=== PATIENT | female | born 1965 | race African-American/Black ===

== ENCOUNTER → 2016-04-14 16:35 | Outpatient (CLI) | payer MEDICARE ==
[2016-03-20 15:49] VITALS: BMI 20.8
[~2016-04-14 16:35] MED LIST: Ancef 2 GM/Dextrose IV; CLEOCIN HCL300 MG PO; FOLATE0.4 MG PO; IMITREX100 MG PO; METOPROLOL TART50 MG PO; PERCOCET 10/3251 TA1 PO; PREDNISONE10 MG PO; PREDNISONE5 MG PO; PROAIR HFA8.5 GM INH; SOMA350 MG PO; TEMAZEPAM30 MG PO; VIBRAMYCIN 100100 MG PO; XANAX0.5 MG PO; XANAX1 MG PO
[2016-04-14 17:15] LABS: BASOPHILS 0.3 % (0.0-2.0); EOSINOPHILS 1.7 % (0-7); HEMATOCRIT 30.2 % (36.0-48.0); HEMOGLOBIN 9.8 g/dL (12-16); IMMATURE GRANULOCYTES 0.1 % (0-5); LYMPHOCYTES 20.6 % (15-50); MCH 28.1 pg (26.0-34.0); MCHC 32.5 g/dL (31.0-37.0); MCV 86.5 fL (80.0-100.0); MONOCYTES 6.2 % (2-11); NEUTROPHILS 71.1 % (40-80); PLATELET COUNT 227 10x3/uL (130-400); RBC 3.49 10x6/uL (4.00-5.40); RDW 15.9 % (11.5-14.5); WBC 7.2 10x3/uL (4.8-10.8)
[2016-04-14 17:25] LABS: C-REACTIVE PROTEIN 2.7 mg/dL (0.0-0.9); CREATININE - SERUM 0.8 mg/dL (0.6-1.3)
[2016-04-14 18:19] LABS: ERYTHROCYTE SEDIMENTATION RATE 38 mm/hr (0-30)
== END | disposition home or self-care (01) ==
LOC: D.LABREF 16:35
PROVIDERS: Student in an Organized Health Care Education/Training Program
DX: T84.59XA Infection and inflammatory reaction due to other internal joint prosthesis, initial encounter (principal); B95.61 Methicillin susceptible Staphylococcus aureus infection as the cause of diseases classified elsewhere; M06.9 Rheumatoid arthritis, unspecified

== ENCOUNTER → 2016-04-21 16:38 | Outpatient (CLI) | payer MEDICARE ==
[2016-03-20 15:49] VITALS: BMI 20.8
[2016-04-21 18:35] LABS: C-REACTIVE PROTEIN 0.2 mg/dL (0.0-0.9); CREATININE - SERUM 0.9 mg/dL (0.6-1.3)
== END | disposition home or self-care (01) ==
LOC: D.LABREF 16:38
PROVIDERS: Student in an Organized Health Care Education/Training Program
DX: T84.50XA Infection and inflammatory reaction due to unspecified internal joint prosthesis, initial encounter (principal)

== ENCOUNTER → 2016-04-22 17:53 | Outpatient (CLI) | payer MEDICARE ==
[2016-03-20 15:49] VITALS: BMI 20.8
[2016-04-22 20:00] LABS: BASOPHILS 0.1 % (0.0-2.0); EOSINOPHILS 1.7 % (0-7); HEMATOCRIT 33.5 % (36.0-48.0); IMMATURE GRANULOCYTES 0.1 % (0-5); LYMPHOCYTES 27.1 % (15-50); MCH 28.4 pg (26.0-34.0); MCHC 32.8 g/dL (31.0-37.0); MCV 86.3 fL (80.0-100.0); MONOCYTES 4.5 % (2-11); NEUTROPHILS 66.5 % (40-80); RBC 3.88 10x6/uL (4.00-5.40); RDW 15.7 % (11.5-14.5); WBC 7.3 10x3/uL (4.8-10.8)
[2016-04-22 20:03] LABS: PLATELET COUNT 284 10x3/uL (130-400)
[2016-04-22 21:12] LABS: ERYTHROCYTE SEDIMENTATION RATE 25 mm/hr (0-30)
== END | disposition home or self-care (01) ==
LOC: D.LABREF 17:53
PROVIDERS: Student in an Organized Health Care Education/Training Program
DX: T84.59XA Infection and inflammatory reaction due to other internal joint prosthesis, initial encounter (principal); Z45.2 Encounter for adjustment and management of vascular access device; Z79.2 Long term (current) use of antibiotics; B95.61 Methicillin susceptible Staphylococcus aureus infection as the cause of diseases classified elsewhere

== ENCOUNTER 2016-04-28 08:00 | Outpatient (CLI) | payer MEDICARE ==
[2016-03-20 15:49] VITALS: BMI 20.8
[2016-04-25 09:59] LABS: BASOPHILS 0.2 % (0.0-2.0); EOSINOPHILS 2.3 % (0-7); HEMATOCRIT 32.8 % (36.0-48.0); HEMOGLOBIN 10.7 g/dL (12-16); IMMATURE GRANULOCYTES 0.2 % (0-5); LYMPHOCYTES 18.6 % (15-50); MCH 28.2 pg (26.0-34.0); MCHC 32.6 g/dL (31.0-37.0); MCV 86.5 fL (80.0-100.0); MEAN PLATELET VOLUME 11.1 fL (7.4-10.4); MONOCYTES 4.5 % (2-11); NEUTROPHILS 74.2 % (40-80); PLATELET COUNT 261 10x3/uL (130-400); RBC 3.79 10x6/uL (4.00-5.40); RDW 15.5 % (11.5-14.5); WBC 8.6 10x3/uL (4.8-10.8)
[2016-04-25 10:07] LABS: CALC OSMOLALITY 281 mosm/kg (275-300); CALCIUM 8.9 mg/dL (8.5-10.1); CARBON DIOXIDE 28.2 mmol/L (21.0-32.0); CHLORIDE - SERUM 104 mmol/L (98-107); CREATININE - SERUM 0.8 mg/dL (0.6-1.3); GLUCOSE 90 mg/dL (74-106); POTASSIUM - SERUM 3.7 mmol/L (3.5-5.1); SODIUM 141 mmol/L (136-145); UREA NITROGEN 14 mg/dL (7-18); eGFR NON AFRICAN AMERICAN 80 mL/min (90-120)
[2016-04-25 10:08] LABS: APTT 25.7 SECONDS (22.8-39.4); INR 0.98 (0.85-1.17); PROTIME 12.9 SECONDS (11.6-15.0)
[2016-04-25 10:09] LABS: APPEARANCE CLEAR (CLEAR); BILIRUBIN NEGATIVE (NEGATIVE); COLOR YELLOW (YELLOW); GLUCOSE NEGATIVE (NEGATIVE); KETONE NEGATIVE (NEGATIVE); LEUKOCYTE ESTERASE NEGATIVE (NEGATIVE); NITRITE NEGATIVE (NEGATIVE); PROTEIN NEGATIVE (NEGATIVE); UROBILINOGEN NORMAL (NORMAL)
[~2016-04-28 08:00] MED LIST changes: -FOLATE0.4 MG PO; -VIBRAMYCIN 100100 MG PO
[2016-04-28 19:50] LABS: BASOPHILS 0.2 % (0.0-2.0); EOSINOPHILS 1.6 % (0-7); HEMATOCRIT 30.6 % (36.0-48.0); IMMATURE GRANULOCYTES 0.4 % (0-5); LYMPHOCYTES 27.4 % (15-50); MCH 28.1 pg (26.0-34.0); MCHC 32.7 g/dL (31.0-37.0); MEAN PLATELET VOLUME 13.1 fL (7.4-10.4); NEUTROPHILS 65.4 % (40-80); PLATELET COUNT 258 10x3/uL (130-400); RBC 3.56 10x6/uL (4.00-5.40); RDW 15.8 % (11.5-14.5); WBC 8.1 10x3/uL (4.8-10.8)
[2016-04-28 19:51] LABS: C-REACTIVE PROTEIN 0.2 mg/dL (0.0-0.9); CREATININE - SERUM 0.8 mg/dL (0.6-1.3)
[2016-04-28 21:46] LABS: ERYTHROCYTE SEDIMENTATION RATE 30 mm/hr (0-30)
== END 2016-04-28 23:59 | disposition home or self-care (01) ==
LOC: D.OPS 08:00 → D.SDCHOLD 11:00 → EDSTATUS 11:25 → D.SDCHOLD 11:25 → D.OPS 23:59
PROVIDERS: Orthopaedic Surgery
DX: T85.9XXA Unspecified complication of internal prosthetic device, implant and graft, initial encounter (principal); Z01.810 Encounter for preprocedural cardiovascular examination; Z01.811 Encounter for preprocedural respiratory examination; Z01.812 Encounter for preprocedural laboratory examination; Z53.9 Procedure and treatment not carried out, unspecified reason

== ENCOUNTER → 2016-05-05 15:49 | Outpatient (CLI) | payer MEDICARE ==
[2016-03-20 15:49] VITALS: BMI 20.8
[~2016-05-05 15:49] MED LIST changes: +FOLATE0.4 MG PO; +VIBRAMYCIN 100100 MG PO
[2016-05-05 16:26] LABS: BASOPHILS 0.3 % (0.0-2.0); EOSINOPHILS 1.6 % (0-7); HEMATOCRIT 32.5 % (36.0-48.0); HEMOGLOBIN 10.8 g/dL (12-16); IMMATURE GRANULOCYTES 0.3 % (0-5); LYMPHOCYTES 29.1 % (15-50); MCH 28.5 pg (26.0-34.0); MCHC 33.2 g/dL (31.0-37.0); MCV 85.8 fL (80.0-100.0); MONOCYTES 4.2 % (2-11); NEUTROPHILS 64.5 % (40-80); PLATELET COUNT 256 10x3/uL (130-400); RBC 3.79 10x6/uL (4.00-5.40); RDW 15.6 % (11.5-14.5); WBC 7.9 10x3/uL (4.8-10.8)
[2016-05-05 16:49] LABS: C-REACTIVE PROTEIN 0.7 mg/dL (0.0-0.9); CREATININE - SERUM 0.8 mg/dL (0.6-1.3)
[2016-05-05 18:17] LABS: ERYTHROCYTE SEDIMENTATION RATE 26 mm/hr (0-30)
== END | disposition home or self-care (01) ==
LOC: D.LABREF 15:49
PROVIDERS: Student in an Organized Health Care Education/Training Program
DX: T84.59XA Infection and inflammatory reaction due to other internal joint prosthesis, initial encounter (principal); B95.61 Methicillin susceptible Staphylococcus aureus infection as the cause of diseases classified elsewhere

== ENCOUNTER 2016-05-19 05:32 | Inpatient (IN) | payer MEDICARE ==
[2016-05-16 15:41] LABS: BASOPHILS 0.2 % (0.0-2.0); EOSINOPHILS 1.2 % (0-7); HEMATOCRIT 34.6 % (36.0-48.0); HEMOGLOBIN 11.3 g/dL (12-16); IMMATURE GRANULOCYTES 0.3 % (0-5); LYMPHOCYTES 21.2 % (15-50); MCH 28.6 pg (26.0-34.0); MCHC 32.7 g/dL (31.0-37.0); MCV 87.6 fL (80.0-100.0); MEAN PLATELET VOLUME 12.5 fL (7.4-10.4); MONOCYTES 5.8 % (2-11); NEUTROPHILS 71.3 % (40-80); PLATELET COUNT 234 10x3/uL (130-400); RBC 3.95 10x6/uL (4.00-5.40); RDW 15.1 % (11.5-14.5); WBC 9.7 10x3/uL (4.8-10.8)
[2016-05-16 15:49] LABS: ANION GAP 13.5 mmol/L (8-16); CALCIUM 9.3 mg/dL (8.5-10.1); CARBON DIOXIDE 27.7 mmol/L (21.0-32.0); CREATININE - SERUM 0.9 mg/dL (0.6-1.3); POTASSIUM - SERUM 4.2 mmol/L (3.5-5.1)
[2016-05-16 16:18] LABS: APPEARANCE CLEAR (CLEAR); BILIRUBIN NEGATIVE (NEGATIVE); COLOR YELLOW (YELLOW); GLUCOSE NEGATIVE (NEGATIVE); KETONE NEGATIVE (NEGATIVE); LEUKOCYTE ESTERASE NEGATIVE (NEGATIVE); NITRITE NEGATIVE (NEGATIVE); PROTEIN NEGATIVE (NEGATIVE); SPECIFIC GRAVITY 1.015 (1.005-1.020); UROBILINOGEN NORMAL (NORMAL)
[2016-05-16 16:27] LABS: APTT 26.1 SECONDS (22.8-39.4); INR 0.97 (0.85-1.17); PROTIME 12.7 SECONDS (11.6-15.0)
[~2016-05-19] VITALS: Ht 154.9 cm; Wt 49.1 kg
[2016-05-19] VITALS (9 sets, daily range): BP systolic 139–174; BP diastolic 75–90; Ht 154.9 cm; Wt 49.1 kg
[~2016-05-19 05:32] MED LIST changes: -FOLATE0.4 MG PO; -VIBRAMYCIN 100100 MG PO
[2016-05-19] MEDS ORDERED: PROAIR HFA8.5 GM INH (09:54)
--- NOTE | 2016-05-19 09:55 | NUR ---
0955 PT STATES NO CHANGES IN HEALTH HISTORY ASSESSMENT SINCE INTERVIEWED ON 05/16/16. Rand CRUZ R.N.
[2016-05-19] MEDS ORDERED: FOLATE0.4 MG PO (09:57)
--- NOTE | 2016-05-19 14:15 | NUR ---
RIGHT ELBOW SCRUBBED WITH CHOLRAHEXADINE AND ALCOHOL BEFORE CHLORAPREP
--- NOTE | 2016-05-19 15:59 | NUR ---
PT STATING HOW HUNGRY SHE IS. NO NONVERBAL SIGNS OF PAIN OBSERVED. BP DECREASING AND HR GOING BACK TO PREOP AMOUNTS.
--- NOTE | 2016-05-19 17:05 | NUR ---
BLOOD ON PATIENT'S PILLOW CASE FROM RIGHT INNER ELBOW AREA OF DRESSING. REENFORCED DRESSING WITH 1 PACK OF 4X4 GAUZE AND WRAPPED WITH JAQUAN BANDAGE. PATIENT HAS A SMALL SLING THAT CAME WITH HER FROM THE RECOVERY ROOM, IT IS TOO SMALL. ASSISTED HOLDING PATIENT'S ARM SHE AMBULATED FROM THE BED TO THE BATHROOM. PATIENT VOIDED. ASSISTED PATIENT BACK TO BED.
--- NOTE | 2016-05-19 19:00 | NUR ---
PATIENT SUPINE IN BED WATCHING TV. AAOX4. RR EVEN AND UNLABORED. 0 S/S OF DISTRESS. STATES PAIN IS A 10/10. IV TO LEFT HAND PATENT WITH NO REDNESS OR SWELLING. DRESSING TO RIGHT ELBOW CDI. SLING ON. SCD'S IN ROOM BUT OFF. SRX2. BED LOW. CALL LIGHT WITHIN REACH.
--- NOTE | 2016-05-19 21:45 | NUR ---
NIGHTTIME MEDS GIVEN. BOLUS OF DILAUDID GIVEN FOR BREAKTHROUGH PAIN.
--- NOTE | 2016-05-19 23:40 | NUR ---
PATIENT STATES THAT SHE IS HAVING A PAIN IN HER ABDOMEN AND THAT SHE IS VERY NAUSEATED. ZOFRAN GIVEN PER ORDER.
[2016-05-20 01:00] VITALS: BP 150/76
[2016-05-20 05:00] VITALS: BP 152/88
[2016-05-20 05:58] LABS: BASOPHILS 0.1 % (0.0-2.0); EOSINOPHILS 0.4 % (0-7); HEMATOCRIT 29.6 % (36.0-48.0); HEMOGLOBIN 9.7 g/dL (12-16); IMMATURE GRANULOCYTES 0.2 % (0-5); LYMPHOCYTES 14.3 % (15-50); MCH 28.2 pg (26.0-34.0); MCHC 32.8 g/dL (31.0-37.0); MEAN PLATELET VOLUME 12.3 fL (7.4-10.4); MONOCYTES 6.5 % (2-11); NEUTROPHILS 78.5 % (40-80); PLATELET COUNT 230 10x3/uL (130-400); RBC 3.44 10x6/uL (4.00-5.40); RDW 14.9 % (11.5-14.5)
[2016-05-20 06:17] LABS: ALBUMIN 3.5 g/dL (3.4-5.0); ALKALINE PHOSPHATASE 96 U/L (46-116); ALT (SGPT) 18 U/L (10-68); CALC OSMOLALITY 283 mosm/kg (275-300); CALCIUM 8.9 mg/dL (8.5-10.1); CHLORIDE - SERUM 106 mmol/L (98-107); CREATININE - SERUM 0.8 mg/dL (0.6-1.3); GLUCOSE 111 mg/dL (74-106); POTASSIUM - SERUM 3.9 mmol/L (3.5-5.1); PROTEIN - SERUM 7.2 g/dL (6.4-8.2); SODIUM 141 mmol/L (136-145); UREA NITROGEN 17 mg/dL (7-18); eGFR NON AFRICAN AMERICAN 80 mL/min (90-120)
--- NOTE | 2016-05-20 07:34 | NUR ---
PATIENT VERBALIZED NAUSEA. PATIENT STATED "THE DILAUDID IS MAKING ME NAUSEOUS. EVERYTIME I PUSH THE BUTTON I GET NAUSEOUS." ADMINISTERED ZOFRAN IV. PATIENT VERBALIZING PAIN. PATIENT MOANING, CRYING. PATIENT STATED "I JUST WANT TO FEEL BETTER." ASKED PATIENT "WHAT HELPS YOUR PAIN WITHOUT MAKING YOU NAUSEOUS?" PATIENT STATED "PERCOCETS AND SOMAS."
[2016-05-20 08:18] VITALS: BP 177/97
--- NOTE | 2016-05-20 09:00 | NUR ---
PATIENT AMBULATED TO AND FROM THE BATHROOM WITH ASSIST FROM NURSING STUDENTS.
--- NOTE | 2016-05-20 09:33 | NUR ---
PATIENT RESTING QUIETLY WITH EYES CLOSED. LAYING ON LEFT SIDE. BOYFRIEND IN RECLINER AT BEDSIDE. NO SIGNS OF DISTRESS NOTED.
[2016-05-20 12:01] VITALS: BP 162/72
--- NOTE | 2016-05-20 14:50 | NUR ---
PATIENT VERBALIZED TENDERNESS TO IV IN LEFT HAND. TRIED TO FLUSH, PATIENT VERBALIZED BURNING. D/C IV WITH CATH INTACT. PATIENT IS A HARD STICK. WILL CALL TAMIR VENOUS ACCESS NURSE.
--- NOTE | 2016-05-20 15:19 | NUR ---
iv ACCESS-22 gauge IV catheter placed in left hand x 1 attempt. Brenda Joel RN
--- NOTE | 2016-05-20 17:25 | NUR ---
GRAHAM WATTSSPRAYER HAND STATED THE PATIENT IS REQUESTING MEDIDCATION FOR ANXIETY.
--- NOTE | 2016-05-20 17:39 | NUR ---
WENT IN PATIENT'S ROOM, SHE IS RESTING QUIETLY WITH EYES CLOSED. WILL NOT GIVE MEDICATION FOR ANXIETY AT THIS TIME.
--- NOTE | 2016-05-20 18:00 | NUR ---
IV KEEPS BEEPING OCCLUDED. IV IS POSITIONAL. IF PATIENT HOLDS HER HAND AT A CERTAIN ANGLE IV FLUSHES READILY, WITHOUT RESISTANCE. EXPLAINED TO PATIENT. DISCUSSED WITH PATIENT ABOUT THE IV BEEPING CONSTANTLY. PATIENT IS UNABLE TO HOLD HAND AT THE ANGLE IT INFUSES AT. PATIENT AGREED TO TRY TO GET ANOTHER IV PUT IN. TRIED TO STICK PATIENT IN LEFT FOREARM X'S 1 ATTEMPT, UNSUCCESSFUL.
--- NOTE | 2016-05-20 18:30 | NUR ---
ANOTHER NURSE TRIED TO START IV AND WAS UNSUCCESSFUL. SPOKE WITH PATIENT. EXPLAINED THAT I CAN HOOK HER BACK UP TO THE IV AND POLE PEELING MACHINE OPERATOR BUT IT WILL CONTINUE TO BEEP AND SOMEONE WILL HAVE TO KEEP COMING IN TO RESTART IT. OR WE CAN DO THE ORAL PAIN MEDICATION AND ONLY USE THE IV FOR ANTIBIOTICS. PATIENT AGREED TO BEING SALINE LOCKED EXCEPT FOR ANTIBIOTICS AND TAKING ONLY ORAL PAIN MEDICATION. PATIENT STATED SHE UNDERSTANDS.
--- NOTE | 2016-05-20 18:46 | NUR ---
ADMINISTERED A PERCOCET. PATIENT STATED "I NEED YOU TO GIVE ME MY PERCOCET, NORCO AND SOMA." I EXPLAINED TO PATIENT "I CANNOT GIVE YOU ALL OF THOSE MEDS AT ONE TIME. YOUR SOMA IS SCHEDULED. AND THE NORCO AND PERCOCET WE CANNOT GIVE WITHIN 2 HOURS OF THE OTHER ONE." PATIENT VERBALIZED UNDERSTANDING AND AGREED.
[2016-05-20 21:00] VITALS: BP 127/71
[2016-05-21 01:00] VITALS: BP 117/68
--- NOTE | 2016-05-21 04:39 | NUR ---
EYES CLOSED RESPIRATIONS WITH EASE AND UNLABORED.
[2016-05-21 05:00] VITALS: BP 122/68
[2016-05-21 05:35] LABS: BASOPHILS 0.1 % (0.0-2.0); HEMATOCRIT 27.1 % (36.0-48.0); HEMOGLOBIN 8.9 g/dL (12-16); IMMATURE GRANULOCYTES 0.1 % (0-5); LYMPHOCYTES 29.3 % (15-50); MCH 28.2 pg (26.0-34.0); MCHC 32.8 g/dL (31.0-37.0); MCV 85.8 fL (80.0-100.0); MEAN PLATELET VOLUME 11.5 fL (7.4-10.4); MONOCYTES 11.1 % (2-11); NEUTROPHILS 55.4 % (40-80); PLATELET COUNT 218 10x3/uL (130-400); RBC 3.16 10x6/uL (4.00-5.40)
[2016-05-21 05:42] LABS: WBC 7.2 10x3/uL (4.8-10.8)
[2016-05-21 06:15] LABS: ALBUMIN 3.2 g/dL (3.4-5.0); ALKALINE PHOSPHATASE 76 U/L (46-116); ALT (SGPT) 16 U/L (10-68); BILIRUBIN - TOTAL 0.28 mg/dL (0.2-1.3); CALC OSMOLALITY 281 mosm/kg (275-300); CALCIUM 8.5 mg/dL (8.5-10.1); CARBON DIOXIDE 25.3 mmol/L (21.0-32.0); CHLORIDE - SERUM 107 mmol/L (98-107); CREATININE - SERUM 0.8 mg/dL (0.6-1.3); GLUCOSE 93 mg/dL (74-106); POTASSIUM - SERUM 3.6 mmol/L (3.5-5.1); SODIUM 142 mmol/L (136-145); eGFR NON AFRICAN AMERICAN 80 mL/min (90-120)
[2016-05-21 06:22] LABS: UREA NITROGEN 10 mg/dL (7-18)
--- NOTE | 2016-05-21 07:15 | NUR ---
PATIENT RECEIVED SITTING UP IN BED ALERT. NO SIGNS OF DISTRESS NOTED. SIDE RAILS UP X2. BED IN LOW POSITION. CALL LIGHT IN REACH.
[2016-05-21 08:03] VITALS: BP 101/63
[2016-05-21] MEDS ORDERED: SOMA350 MG PO (08:12)
[2016-05-21] MEDS ORDERED: XANAX0.5 MG PO (08:13)
[2016-05-21] MEDS ORDERED: METOPROLOL TART50 MG PO (08:13)
[2016-05-21] MEDS ORDERED: PREDNISONE5 MG PO (08:14)
[2016-05-21] MEDS ORDERED: PERCOCET 10/3251 TA1 PO (08:15)
[2016-05-21] MEDS ORDERED: VIBRAMYCIN 100100 MG PO (08:19)
[2016-05-21] MEDS ORDERED: XANAX1 MG PO (08:25)
--- NOTE | 2016-05-21 09:04 | NUR ---
PATIENT SITTING UP ON SIDE OF BED ALERT. NO SIGNS OF DISTRESS NOTED. SCHEDULED MEDICATION ADMINISTERED. BED IN LOW POSITION. CALL LIGHT AND SURVEILLANCE DUAL RATE OFFICER BUTTON IN REACH. WILL CONTINUE TO MONITOR.
--- NOTE | 2016-05-21 09:09 | NUR ---
Patient Name: RENE KNUTSON Admission Status: Elective Accout number: [id number] Admission Date: 05-19-2016 : 1965 Admission Diagnosis: Attending: LUX Current LOS: 2 Anticipated DC Date: 05-21-2016 Planned Disposition: Home or Self Care Primary Insurance: MEDICARE A & B Discharge Planning Comments: CM MET WITH PATIENT REGARDING D/C NEEDS AND PLANS. PATIENT STATED SHE IS DISCHARGING HOME TODAY AND SHE DENIED HOME HEALTH OR ANY OTHER NEEDS. PATIENT STATED HER BOYFRIEND (HUEY) IS DRIVING HER HOME. PATIENT STATED SHE HAS 2 STEPS W/GRAB BAR TO ENTER HOME AND NO STAIRS INSIDE. PATIENTS BOYFRIEND HELPS HER WITH DRESSING, BATHING, AND MEDICATION MANAGEMENT. PATIENTS PCP IS WITH [facility] BUT SHE DOES NOT KNOW THE NAME. PATIENT USES [facility] [address] [facility] [address] FOR HER PHARMACY. CM WILL CONTINUE TO FOLLOW PATIENT WITH HER D/C NEEDS AND PLANS. PCP [facility] [address] HUEY (BOYFRIEND) [phone] Cv Rn: Jaci Hansen Is the patient Alert and Oriented? Yes 0 * How many steps to enter\exit or inside your home? 3 W/RAILS 0 * PCP [facility] 0 * Pharmacy [facility] [address] 0 * Preadmission Environment Home with Family 0 * ADLs Partial Dependent 0 * Partial ADLs (Assistance needed) Bathing Dressing Medication Management 0 * Equipment None 0 * List name and contact numbers for known caregivers / representatives who currently or will assist patient after discharge: HUEY LEIGH (BOYFRIEND) [phone] 0 * Community resources currently utilized None 0 * Additional services required to return to the preadmission environment? Yes 0 * Can the patient safely return to the preadmission environment? Yes 0 * Has this patient been hospitalized within the prior 30 days at any hospital? No 0 Grand Total: 0
--- NOTE | 2016-05-21 12:00 | NUR ---
SITTING UP ON SIDE OF BED ALERT. ANITICIPATING D/C HOME. GUEST AT BEDSIDE. CALL LIGHT IN REACH. BED IN LOW POSITION.
--- NOTE | 2016-05-21 13:25 | NUR ---
IV D/C WITH CATH TIP INTACT. SITE COVERED WITH GAUZE AND BANDAID. WELL TOLERATED.
--- NOTE | 2016-05-21 13:30 | NUR ---
D/C TEACHING AND WRITTEN PRESCRIPTIONS GIVEN TO PATIENT. STATES UNDERSTANDING. DENIES NEEDS.
--- NOTE | 2016-05-21 13:40 | NUR ---
PATIENT D/C HOME WITH FAMILY. TRANSFERRED DOWNSTAIRS VIA WHEELCHAIR WITH VOLUNTEER
--- NOTE | 2016-05-24 10:48 | OP ---
PATIENT NAME: RENE KNUTSON MEDICAL RECORD: [id number] :[birth year] LOCATION:D.MS Tate2212 ADMISSION DATE:05/19/16 SURGEON: OWEN DAVENPORT MD DATE OF OPERATION: 05/19/2016 PREOPERATIVE DIAGNOSIS: Previously placed cement spacer of the right elbow for infection. POSTOPERATIVE DIAGNOSIS: Previously placed cement spacer of the right elbow for infection. PROCEDURE: Revision total elbow with removal of previously placed spacer. SURGEON: Owen Davenport MD. ANESTHESIA: General. INTRAOPERATIVE COMPLICATIONS: Essentially none. SUMMARY OF PATHOLOGIC FINDINGS: This patient has had substantial bone loss and substantial arthrofibrosis; however, after the spacer was taken out, arc of motion about 45 degrees was achieved. Canals were cleared proximally and distally for a small standard and a small short stem for the ulna. After the trials were taken through range of motion and thought to be appropriate, the prosthesis was articulated on the back table and then cemented into place. All excess cement was allowed to harden. The wound at this point was copiously irrigated. The triceps flap was reapproximated back to the olecranon using 2.6 Pitons from [employer]. Having completed this, the wound was closed with #1 Vicryl followed by 2-0 Vicryl and skin gaston. Sterile dressings were applied. Tourniquet was deflated and a splint was applied at approximately 65 degrees. The patient was awakened, LMA was removed. He was taken to recovery room in stable condition. All final needle and sponge counts were correct. TRANSINT:[id number] Voice Confirmation ID: [id number] DOCUMENT ID: [id number] OWEN DAVENPORT MD at 1048 CC: [id number] DICTATION DATE: 05/19/16 1706 RACE BOARD ATTENDANT: 05/19/163 DIS IN 05/21/16 [facility] [address] [id number]
== END 2016-05-21 13:44 | disposition home or self-care (01) | DRG 516 ==
LOC: D.MS 05:32 → D.SDCHOLD 05:32 → D.MS 12:42 → D.SDCHOLD 13:25 → D.MS 05-21 13:44
PROVIDERS: Emergency Medicine; ADMIT Orthopaedic Surgery
PROC: 0RP Upper Joints, Removal (ICD-10-PCS; 2016-05-19)
PROC: 0RW Upper Joints, Revision (ICD-10-PCS; principal; 2016-05-19 11:45)
DX: Z47.1 Aftercare following joint replacement surgery (principal); D62 Acute posthemorrhagic anemia; F17.203 Nicotine dependence unspecified, with withdrawal; M24.621 Ankylosis, right elbow; D63.8 Anemia in other chronic diseases classified elsewhere; M06.9 Rheumatoid arthritis, unspecified; I10 Essential (primary) hypertension; E87.6 Hypokalemia; E05.90 Thyrotoxicosis, unspecified without thyrotoxic crisis or storm

== ENCOUNTER → 2016-07-03 09:46 | Outpatient (CLI) | payer MEDICARE ==
[2016-05-19 17:33] VITALS: BMI 20.4
[2016-07-10 16:14] LABS: AEROBE ID Final report (())
== END | disposition home or self-care (01) ==
LOC: D.LABREF 09:46
PROVIDERS: Orthopaedic Surgery
DX: Z47.1 Aftercare following joint replacement surgery (principal); Z96.621 Presence of right artificial elbow joint

== ENCOUNTER → 2016-07-03 | Emergency (ER) | payer MEDICARE ==
[2016-05-19 17:33] VITALS: BMI 20.4
[~2016-07-03] MED LIST changes: +FOLATE0.4 MG PO; +VIBRAMYCIN 100100 MG PO
[2016-07-03 23:29] LABS: BASOPHILS 0.4 % (0.0-2.0); EOSINOPHILS 3.8 % (0-7); HEMATOCRIT 35.4 % (36.0-48.0); HEMOGLOBIN 11.8 g/dL (12-16); IMMATURE GRANULOCYTES 0.1 % (0-5); LYMPHOCYTES 35.6 % (15-50); MCH 28.4 pg (26.0-34.0); MCHC 33.3 g/dL (31.0-37.0); MCV 85.1 fL (80.0-100.0); MEAN PLATELET VOLUME 10.8 fL (7.4-10.4); MONOCYTES 8.2 % (2-11); NEUTROPHILS 51.9 % (40-80); PLATELET COUNT 278 10x3/uL (130-400); RBC 4.16 10x6/uL (4.00-5.40); RDW 14.5 % (11.5-14.5); WBC 7.5 10x3/uL (4.8-10.8)
[2016-07-03 23:34] LABS: INR 0.94 (0.85-1.17); PROTIME 12.4 SECONDS (11.6-15.0)
[2016-07-03 23:49] LABS: ALBUMIN 3.8 g/dL (3.4-5.0); ANION GAP 18.2 mmol/L (8-16); BILIRUBIN - TOTAL 0.18 mg/dL (0.2-1.3); CARBON DIOXIDE 21.6 mmol/L (21.0-32.0); CREATININE - SERUM 0.9 mg/dL (0.6-1.3); POTASSIUM - SERUM 3.8 mmol/L (3.5-5.1); PROTEIN - SERUM 8.9 g/dL (6.4-8.2)
[2016-07-03 23:54] LABS: TROPONIN-I 0.046 ng/mL (0.000-0.060)
== END ==
LOC: D.ER 21:14
PROVIDERS: Family Medicine
DX: M25.521 Pain in right elbow (principal)

== ENCOUNTER 2016-07-29 02:16 | Emergency (ER) | payer MEDICARE ==
[2016-05-19 17:33] VITALS: BMI 20.4
[2016-07-29 02:42] LABS: BASOPHILS 0.5 % (0.0-2.0); EOSINOPHILS 5.5 % (0-7); HEMOGLOBIN 11.7 g/dL (12-16); IMMATURE GRANULOCYTES 0.3 % (0-5); LYMPHOCYTES 46.2 % (15-50); MCH 28.5 pg (26.0-34.0); MCHC 33.4 g/dL (31.0-37.0); MCV 85.2 fL (80.0-100.0); MEAN PLATELET VOLUME 11.4 fL (7.4-10.4); MONOCYTES 8.2 % (2-11); NEUTROPHILS 39.3 % (40-80); PLATELET COUNT 267 10x3/uL (130-400); RBC 4.11 10x6/uL (4.00-5.40); RDW 14.2 % (11.5-14.5)
[2016-07-29 02:55] LABS: ALBUMIN 3.3 g/dL (3.4-5.0); ALKALINE PHOSPHATASE 96 U/L (46-116); ALT (SGPT) 13 U/L (10-68); BILIRUBIN - TOTAL 0.19 mg/dL (0.2-1.3); CALC OSMOLALITY 284 mosm/kg (275-300); CARBON DIOXIDE 23.2 mmol/L (21.0-32.0); CHLORIDE - SERUM 105 mmol/L (98-107); GLUCOSE 145 mg/dL (74-106); POTASSIUM - SERUM 3.6 mmol/L (3.5-5.1); PROTEIN - SERUM 7.9 g/dL (6.4-8.2); SODIUM 142 mmol/L (136-145); UREA NITROGEN 9 mg/dL (7-18); eGFR NON AFRICAN AMERICAN 62 mL/min (90-120)
[2016-07-29 03:07] LABS: CKMB 0.4 U/L (0.0-3.6); CREATINE KINASE 80 UL (21-215); TROPONIN-I 0.029 ng/mL (0.000-0.060)
== END 2016-07-29 03:38 | disposition home or self-care (01) ==
LOC: D.ER 02:16
PROVIDERS: Emergency Medicine
DX: M06.9 Rheumatoid arthritis, unspecified (principal); M62.838 Other muscle spasm; G44.209 Tension-type headache, unspecified, not intractable; J45.909 Unspecified asthma, uncomplicated; D57.1 Sickle-cell disease without crisis; F17.200 Nicotine dependence, unspecified, uncomplicated

== ENCOUNTER 2016-10-03 07:40 | Emergency (ER) | payer MEDICARE ==
[2016-05-19 17:33] VITALS: BMI 20.4
== END 2016-10-03 10:02 | disposition home or self-care (01) ==
LOC: D.ER 07:40
DX: G43.909 Migraine, unspecified, not intractable, without status migrainosus (principal); J45.909 Unspecified asthma, uncomplicated; I10 Essential (primary) hypertension

== ENCOUNTER 2016-11-10 21:52 | Emergency (ER) | payer MEDICARE ==
[2016-05-19 17:33] VITALS: BMI 20.4
[2016-11-10 22:34] LABS: BASOPHILS 0.1 % (0-2); EOSINOPHILS 4.4 % (0-7); HEMOGLOBIN 11.7 g/dL (12-16); IMMATURE GRANULOCYTES 0.1 % (0-5); LYMPHOCYTES 36.8 % (15-50); MCH 27.4 pg (26.0-34.0); MCHC 33.4 g/dL (31.0-37.0); MEAN PLATELET VOLUME 11.1 fL (7.4-10.4); MONOCYTES 8.7 % (2-11); NEUTROPHILS 49.9 % (40-80); RBC 4.27 10x6/uL (4.00-5.40); WBC 8.2 10x3/uL (4.8-10.8)
[2016-11-10 22:43] LABS: PLATELET COUNT 381 10x3/uL (130-400)
[2016-11-10 22:59] LABS: ALBUMIN 3.5 g/dL (3.4-5.0); ALKALINE PHOSPHATASE 109 U/L (46-116); ALT (SGPT) 16 U/L (10-68); BILIRUBIN - TOTAL 0.22 mg/dL (0.2-1.3); CALC OSMOLALITY 283 mosm/kg (275-300); CARBON DIOXIDE 26.9 mmol/L (21.0-32.0); CHLORIDE - SERUM 106 mmol/L (98-107); CREATININE - SERUM 0.9 mg/dL (0.6-1.3); GLUCOSE 103 mg/dL (74-106); POTASSIUM - SERUM 3.9 mmol/L (3.5-5.1); PROTEIN - SERUM 8.4 g/dL (6.4-8.2); SODIUM 143 mmol/L (136-145); UREA NITROGEN 10 mg/dL (7-18); eGFR NON AFRICAN AMERICAN 70 mL/min (90-120)
[2016-11-10 23:28] LABS: CHOL - HDL RATIO 3.7 ratio (2.3-4.1); CHOLESTEROL, TOTAL 151 mg/dL (0-200); CKMB 0.5 U/L (0.0-3.6); CREATINE KINASE 57 UL (21-215); HDL CHOLESTEROL 41 mg/dL (32-96); LDL CHOLESTEROL 91 mg/dL (0-100); LDL-HDL RATIO 2.2 ratio (1.5-3.5); TRIGLYCERIDE 98 mg/dL (30-200)
[2016-11-10 23:29] LABS: TROPONIN-I < 0.017 ng/mL (0.000-0.060)
== END 2016-11-11 02:45 | disposition home or self-care (01) ==
LOC: D.ER 21:52
PROVIDERS: Family Medicine
DX: R07.89 Other chest pain (principal); I10 Essential (primary) hypertension; G43.909 Migraine, unspecified, not intractable, without status migrainosus; J45.909 Unspecified asthma, uncomplicated; F17.200 Nicotine dependence, unspecified, uncomplicated

== ENCOUNTER → 2017-02-05 10:45 | Outpatient (CLI) | payer MEDICARE ==
[2016-05-19 17:33] VITALS: BMI 20.4
[~2017-02-05 10:45] MED LIST changes: +ELIQUIS2.5 MG PO
== END | disposition home or self-care (01) ==
LOC: D.LABREF 10:45
DX: M06.9 Rheumatoid arthritis, unspecified (principal); Z11.8 Encounter for screening for other infectious and parasitic diseases

== ENCOUNTER 2017-02-18 10:00 | Inpatient (IN) | payer MEDICARE ==
[~2017-02-18] VITALS: Ht 152.4 cm; Wt 49.5 kg
[~2017-02-18 10:00] MED LIST changes: -ELIQUIS2.5 MG PO
--- NOTE | 2017-02-18 11:45 | NUR ---
LAKISHA LEAL, AT DR. DAVENPORT'S OFFICE NOTIFIED PATIENT WAS NO SHOW FOR BONE & JOINT CLASS TODAY.
[2017-03-04 11:33] LABS: BASOPHILS 0.2 % (0-2); EOSINOPHILS 2.7 % (0-7); HEMATOCRIT 36.1 % (36.0-48.0); HEMOGLOBIN 11.8 g/dL (12-16); IMMATURE GRANULOCYTES 0.2 % (0-5); LYMPHOCYTES 33.7 % (15-50); MCH 27.3 pg (26.0-34.0); MCHC 32.7 g/dL (31.0-37.0); MCV 83.6 fL (80.0-100.0); MEAN PLATELET VOLUME 10.6 fL (7.4-10.4); MONOCYTES 7.8 % (2-11); NEUTROPHILS 55.4 % (40-80); PLATELET COUNT 340 10x3/uL (130-400); RBC 4.32 10x6/uL (4.00-5.40); RDW 16.7 % (11.5-14.5); WBC 6.3 10x3/uL (4.8-10.8)
[2017-03-04 11:41] LABS: CALC OSMOLALITY 280 mosm/kg (275-300); CALCIUM 8.9 mg/dL (8.5-10.1); CARBON DIOXIDE 26.7 mmol/L (21.0-32.0); CHLORIDE - SERUM 104 mmol/L (98-107); CREATININE - SERUM 0.8 mg/dL (0.6-1.3); GLUCOSE 94 mg/dL (74-106); POTASSIUM - SERUM 3.6 mmol/L (3.5-5.1); SODIUM 141 mmol/L (136-145); UREA NITROGEN 13 mg/dL (7-18); eGFR NON AFRICAN AMERICAN 80 mL/min (90-120)
[2017-03-04 11:56] LABS: APPEARANCE HAZY (CLEAR); BILIRUBIN NEGATIVE (NEGATIVE); COLOR YELLOW (YELLOW); GLUCOSE NEGATIVE (NEGATIVE); KETONE NEGATIVE (NEGATIVE); NITRITE NEGATIVE (NEGATIVE); PROTEIN NEGATIVE (NEGATIVE); SPECIFIC GRAVITY 1.015 (1.005-1.020); UROBILINOGEN NORMAL (NORMAL)
[2017-03-04 12:07] LABS: APTT 28.3 SECONDS (22.8-39.4); INR 0.98 (0.85-1.17); PROTIME 12.8 SECONDS (11.6-15.0)
[2017-03-09 15:06] VITALS: BP 155/77; BMI 21.5
--- NOTE | 2017-03-09 17:26 | NUR ---
ARMS SEVERE RA WITH ELBOW SURGERYS LEFT ACROSS CHEST FOR COMFORT, PRESSURE AREAS JANETT BOURGEOIS.
[2017-03-09 18:43] VITALS: BP 147/81
[2017-03-09 20:00] VITALS: BP 156/92
[2017-03-10 06:13] LABS: HEMOGLOBIN 9.9 g/dL (12-16); MCH 27.4 pg (26.0-34.0); MCV 83.1 fL (80.0-100.0); MEAN PLATELET VOLUME 11.9 fL (7.4-10.4); RBC 3.61 10x6/uL (4.00-5.40); RDW 16.5 % (11.5-14.5); WBC 11.2 10x3/uL (4.8-10.8)
--- NOTE | 2017-03-10 08:14 | NUR ---
AWAKE AND ALERT. ORIENTED X3. NO C/O AT THIS TIME. LUNGS ARE CLEAR BILATERALLY, NO COUGH NOTED. SKIN IS INTACT WITHOUT REDNESS EXCEPT INCISION TO LEFT KNEE WHICH HAS A DRY INTACT DRESSING IN PLACE. ON CPM AT THIS TIME. IV TO LEFT HAND IS PATENT WITHOUT REDNESS AT INSERTION SITE. DENIES NEEDS AT THIS TIME.
[2017-03-10 09:27] VITALS: BP 149/81
--- NOTE | 2017-03-10 11:04 | NUR ---
Patient Name: RENE KNUTSON Admission Status: Elective Accout number: [id number] Admission Date: 03-09-2017 : 1965 Admission Diagnosis: Attending: OWEN DAVENPORT Current LOS: 1 Anticipated DC Date: Planned Disposition: Home with Home Health Primary Insurance: MEDICARE A & B Discharge Planning Comments: CM met with patient to assess discharge planning needs. Patient stated that she is independent with her ADL's at home and that is where she plans to return at discharge. Patient stated that she has children who will come and help her and her son has taken off work to help her. She does not have any DME, but will need a walker, BSC and CMP machine (CM called [facility] for DME) Patient stated that she is current with [facility] at this time and would like to continue to use them for her PT at discharge. She has 3 steps to enter in her home. CM will continue to follow and assist with discharge planning needs. PCP: [facility] Ramos Britton ([phone]) Exerciser: Poonam Saha * Is the patient Alert and Oriented? Yes 0 * How many steps to enter\exit or inside your home? 3 0 * PCP [facility] 0 * Pharmacy [facility] 0 * Preadmission Environment Home with Family 0 * ADLs Independent 0 * Equipment None 0 * List name and contact numbers for known caregivers / representatives who currently or will assist patient after discharge: Ramos Britton [phone] * Community resources currently utilized Home Health 0 * Please name any agencies selected above. [facility] 0 * Additional services required to return to the preadmission environment? Yes 0 * Can the patient safely return to the preadmission environment? Yes 0 * Has this patient been hospitalized within the prior 30 days at any hospital? No 0 Grand Total: 0
--- NOTE | 2017-03-10 11:23 | NUR ---
CRYING WITH PAIN. REQUESTED AND GIVEN 5MG VALIUM PO WITH 30MG TORADOL SLOW IVP FOR SAME. WILL MONITOR.
[2017-03-10 11:33] VITALS: Ht 152.4 cm; Wt 49.5 kg
[2017-03-10 13:08] VITALS: BP 144/78
[2017-03-10 17:01] VITALS: BP 105/58
--- NOTE | 2017-03-10 18:27 | NUR ---
ATE ABOUT HALF OF SUPPER TRAY AND DRANK 2 ENSURE. UP TO BSC WITH ONE PERSON ASSIST. VOIDED CLEAR YELLOW URINE WITHOUT DIFFICULTY. CPM WOULDN;T COME ON AT THIS TIME. DENIES NEEDS. NO CHANGES NOTED.
[2017-03-10 20:00] VITALS: BP 150/78
[2017-03-11 06:09] LABS: HEMATOCRIT 29.9 % (36.0-48.0); HEMOGLOBIN 9.8 g/dL (12-16); MCH 27.4 pg (26.0-34.0); MCHC 32.8 g/dL (31.0-37.0); MCV 83.5 fL (80.0-100.0); MEAN PLATELET VOLUME 12.2 fL (7.4-10.4); RBC 3.58 10x6/uL (4.00-5.40); RDW 16.4 % (11.5-14.5); WBC 9.8 10x3/uL (4.8-10.8)
--- NOTE | 2017-03-11 07:15 | NUR ---
REPORT RECEIVED, ASSUMED CARE OF PT. NO NEEDS VOICED AT THIS TIME.
[2017-03-11 08:04] VITALS: BP 200/115
[2017-03-11 12:22] VITALS: BP 174/100
[2017-03-11 16:09] VITALS: BP 158/101
[2017-03-11 20:00] VITALS: BP 128/81
[2017-03-12] VITALS: BP 133/77
--- NOTE | 2017-03-12 00:08 | NUR ---
194)REC'D. IN BED LYING ON LEFT SIDE. EYES CLOSED RESP. DEEP AND EVEN.ACEWRAP DRSG. DRY/INACT LEFT KNEE.NEUROVASCULAR STATUS TO FOOT WNL. TIMO CONTINUE TO MONITOR FOR ANY CHGES. AND FOLLOW CURRENT PLAN OF CARE
--- NOTE | 2017-03-12 01:14 | NUR ---
PRN PERCOCET ADMINISTERED AT THIS TIME FOR PAIN 10/10. PT STATED HER KNEE IS HURTING VERY BAD. BLANKET PROVIDED. DENIES ANY OTHER NEEDS. CALL LIGHT IN REACH.
[2017-03-12 04:00] VITALS: BP 130/80
[2017-03-12] MEDS ORDERED: PERCOCET 10/3251 TA1 PO (07:36)
[2017-03-12] MEDS ORDERED: ELIQUIS2.5 MG PO (07:36)
[2017-03-12] MEDS ORDERED: SOMA350 MG PO (07:36)
[2017-03-12 08:16] VITALS: BP 114/97
--- NOTE | 2017-03-12 08:54 | NUR ---
Patient being discharged home today, her son will be the one to drive her home. [employer] will be delivering her CPM to her house. [facility] will be delivering her DME to hospital. Patient is set up with Home Health and PT through [facility] . CM will continue to follow and assist with discharge planning needs.
--- NOTE | 2017-03-12 10:07 | NUR ---
DISCHARGE INSTRUCTIONS GIVEN TO PATIENT ORDERED. VERBALIZED UNDERSTANDING AND SIGNED. HOME HEALTH INFORMATION AND DRESSING SENT WITH PATIENT. LEFT KNEE DRESSING CDI.
--- NOTE | 2017-03-12 10:32 | NUR ---
PT DISCHARGED FROM FLOOR VIA WHEELCHAIR TO FAMILY VEHICLE. PERSONAL BELONGINGS WITH PT. NO NEEDS VOICED AT THIS TIME.
--- NOTE | 2017-05-11 15:18 | OP ---
PATIENT NAME: RENE KNUTSON MEDICAL RECORD: [id number] :[birth year] LOCATION:D.MS [id number] ADMISSION DATE:03/09/17 SURGEON: OWEN DAVENPORT MD DATE OF OPERATION: 03/09/2017 PREOPERATIVE DIAGNOSIS: Severe rheumatoid arthritis, left knee. POSTOPERATIVE DIAGNOSIS: Severe rheumatoid arthritis, left knee. PROCEDURE: Left total knee arthroplasty. SURGEON: wOen Davenport MD ANESTHESIA: General. INTRAOPERATIVE COMPLICATIONS: None. SUMMARY OF PATHOLOGIC FINDINGS: The patient had extensive rheumatoid arthritis with complete breakdown tricompartmentally consistent with the preoperative diagnosis of rheumatoid arthritis as well as the preoperative x-rays. OPERATIVE SUMMARY IN DETAIL: After obtaining the appropriate preoperative orthopedic surgery consent as well as anesthetic consultation, evaluation and clearance, the patient was brought to the operating room and placed on the operating table in supine position. After general laryngeal mask airway was administered, tourniquet was placed about the proximal aspect of the right lower extremity. Right lower extremity was then prepped and draped in routine sterile fashion. The leg was elevated and exsanguinated, tourniquet was inflated to 350 mmHg. Routine midline incision was taken down for paramedian arthrotomy. Upon entering the knee, the patient had the typical rheumatoid findings. A complete synovectomy and soft tissue excision was done at this point followed by creation of intramedullary guide hole for the distal femur. Intramedullary guided cuts were then followed by complete exposure of the proximal tibia. The patient's PCL was in good condition and she had a very small intercondylar area. For this reason, I decided to go with the more constrained polyethylene instead of a posterior cruciate sacrificing total knee. Intramedullary guide hole was created for the proximal tibia. Proximal tibial cut was made using intramedullary guidance. Measurements were taken and the distal femoral chamfer cuts were made. The trial components were then put into place. The knee was taken through range of motion and found to be stable in all planes. Final proximal tibial and distal femoral preparations were made followed by excision of the rheumatoid arthritic patellar component. Final patellar components were made. Final patellar cuts were made and final patellar revisions were made. Having completed this, the knee was irrigated in pulsatile lavage fashion. Bone ends were then exposed and dried. Final components were cemented into place. After all excess cement was removed, the cement was allowed to harden, the knee was taken through range of motion and found to be stable in all planes. Paramedian arthrotomy was closed with #2 Ethibond followed by #1 Vicryl, 2-0 Vicryl, and skin gaston. Sterile dressings were applied. Tourniquet was deflated. The patient was awakened, taken to recovery room in stable condition. All final needle and sponge counts were correct. TRANSINT:[id number] Voice Confirmation ID: [id number] DOCUMENT ID: [id number] OPERATIVE REPORT [id number] RENE KNUTSON MD, OWEN TERAN at 1518 CC: [id number] DICTATION DATE: 05/11/17 0948 CELL FEED DEPARTMENT SUPERVISOR: 05/11/17 1306 DIS IN 03/12/17 [id number] [place] [address]
== END 2017-03-12 10:33 | disposition home health service (06) | DRG 470 ==
LOC: D.SDCHOLD 10:00 → D.MS 03-09 05:36 → D.SDCHOLD 03-09 05:36 → D.MS 03-09 18:20
PROVIDERS: ADMIT Orthopaedic Surgery
PROC: 0SRD0JZ Replacement of Left Knee Joint with Synthetic Substitute, Open Approach (ICD-10-PCS; principal; 2017-03-09 14:00)
DX: M06.9 Rheumatoid arthritis, unspecified (principal); D62 Acute posthemorrhagic anemia; I10 Essential (primary) hypertension; F17.200 Nicotine dependence, unspecified, uncomplicated; E05.90 Thyrotoxicosis, unspecified without thyrotoxic crisis or storm; D63.8 Anemia in other chronic diseases classified elsewhere

== ENCOUNTER → 2017-05-06 14:44 | Outpatient (CLI) | payer MEDICARE ==
[2017-03-10 11:33] VITALS: BMI 21.3
[~2017-05-06 14:44] MED LIST changes: +ELIQUIS2.5 MG PO
== END | disposition home or self-care (01) ==
LOC: D.CT 14:44
DX: M17.12 Unilateral primary osteoarthritis, left knee (principal)

== ENCOUNTER 2017-06-25 14:26 | Emergency (ER) | payer MEDICARE ==
[2017-03-10 11:33] VITALS: BMI 21.3
[2017-09-16] MEDS ORDERED: NORVASC10 MG PO (13:32)
== END 2017-06-25 19:23 | disposition home or self-care (01) ==
LOC: D.ER 14:26
DX: G43.909 Migraine, unspecified, not intractable, without status migrainosus (principal)

== ENCOUNTER 2017-07-03 21:02 | Emergency (ER) | payer MEDICARE ==
[2017-03-10 11:33] VITALS: BMI 21.3
[2017-09-16] MEDS ORDERED: NORVASC10 MG PO (13:32)
== END 2017-07-03 21:57 | disposition home or self-care (01) ==
LOC: D.ER 21:02
DX: J01.90 Acute sinusitis, unspecified (principal); R07.9 Chest pain, unspecified; F17.200 Nicotine dependence, unspecified, uncomplicated

== ENCOUNTER 2017-09-01 19:16 | Emergency (ER) | payer MEDICARE ==
[2017-03-10 11:33] VITALS: BMI 21.3
[2017-09-16] MEDS ORDERED: NORVASC10 MG PO (13:32)
== END 2017-09-01 20:55 | disposition home or self-care (01) ==
LOC: D.ER 19:16
DX: G43.909 Migraine, unspecified, not intractable, without status migrainosus (principal)

== ENCOUNTER 2017-09-02 10:56 | Emergency (ER) | payer MEDICARE ==
[2017-03-10 11:33] VITALS: BMI 21.3
[2017-09-02 11:33] LABS: BASOPHILS 0 % (0-2); EOSINOPHILS 0 % (0-7); HEMOGLOBIN 10.7 g/dL (12-16); IMMATURE GRANULOCYTES 0.2 % (0-5); LYMPHOCYTES 20.2 % (15-50); MCH 26.4 pg (26.0-34.0); MCHC 33.4 g/dL (31.0-37.0); MONOCYTES 1.6 % (2-11); RBC 4.05 10x6/uL (4.00-5.40); RDW 16.9 % (11.5-14.5); WBC 6.3 10x3/uL (4.8-10.8)
[2017-09-02 11:35] LABS: PLATELET COUNT 339 10x3/uL (130-400)
[2017-09-02 11:52] LABS: ALBUMIN 3.6 g/dL (3.4-5.0); ALKALINE PHOSPHATASE 105 U/L (46-116); ALT (SGPT) 15 U/L (10-68); BILIRUBIN - TOTAL 0.21 mg/dL (0.2-1.3); CALCIUM 9.7 mg/dL (8.5-10.1); CARBON DIOXIDE 22.3 mmol/L (21.0-32.0); CHLORIDE - SERUM 104 mmol/L (98-107); CREATININE - SERUM 0.9 mg/dL (0.6-1.3); POTASSIUM - SERUM 3.4 mmol/L (3.5-5.1); SODIUM 137 mmol/L (136-145); UREA NITROGEN 14 mg/dL (7-18); eGFR NON AFRICAN AMERICAN 70 mL/min (90-120)
[2017-09-02 11:54] LABS: CREATINE KINASE 54 UL (21-215); PRO BNP 686 pg/mL (0-125)
[2017-09-02 11:55] LABS: CALC OSMOLALITY 278 mosm/kg (275-300); GLUCOSE 164 mg/dL (74-106); TROPONIN-I < 0.017 ng/mL (0.000-0.060)
[2017-09-16] MEDS ORDERED: NORVASC10 MG PO (13:32)
== END 2017-09-02 12:58 | disposition home or self-care (01) ==
LOC: D.ER 10:56
PROVIDERS: Family Medicine
DX: I10 Essential (primary) hypertension (principal); M25.50 Pain in unspecified joint; M06.9 Rheumatoid arthritis, unspecified

== ENCOUNTER 2017-09-06 16:05 | Emergency (ER) | payer MEDICARE ==
[2017-03-10 11:33] VITALS: BMI 21.3
== END 2017-09-06 19:02 | disposition home or self-care (01) ==
LOC: D.ER 16:05
DX: S53.401A Unspecified sprain of right elbow, initial encounter (principal); W18.31XA Fall on same level due to stepping on an object, initial encounter; Y93.89 Activity, other specified; Y92.019 Unspecified place in single-family (private) house as the place of occurrence of the external cause; M25.551 Pain in right hip; I10 Essential (primary) hypertension; F17.200 Nicotine dependence, unspecified, uncomplicated

== ENCOUNTER 2017-09-17 08:40 | Inpatient (IN) | payer MEDICARE ==
[2017-09-16 14:24] LABS: HEMATOCRIT 33.4 % (36.0-48.0); HEMOGLOBIN 11.2 g/dL (12-16); MCH 26.9 pg (26.0-34.0); MCHC 33.5 g/dL (31.0-37.0); MCV 80.1 fL (80.0-100.0); MEAN PLATELET VOLUME 10.3 fL (7.4-10.4); RBC 4.17 10x6/uL (4.00-5.40); RDW 17.1 % (11.5-14.5); WBC 7.6 10x3/uL (4.8-10.8)
[2017-09-16 14:58] LABS: CALC OSMOLALITY 276 mosm/kg (275-300); CARBON DIOXIDE 25.5 mmol/L (21.0-32.0); CHLORIDE - SERUM 102 mmol/L (98-107); CREATININE - SERUM 0.8 mg/dL (0.6-1.3); GLUCOSE 137 mg/dL (74-106); POTASSIUM - SERUM 4.2 mmol/L (3.5-5.1); SODIUM 138 mmol/L (136-145); UREA NITROGEN 9 mg/dL (7-18); eGFR NON AFRICAN AMERICAN 80 mL/min (90-120)
[~2017-09-17] VITALS: Ht 152.4 cm; Wt 47.2 kg
--- NOTE | ~2017-09-17 | OP ---
PATIENT NAME: RENE KNUTSON MEDICAL RECORD: [id number] :67 LOCATION:D.MS Tate2229 ADMISSION DATE:09/17/17 SURGEON: OWEN DAVENPORT MD DATE OF OPERATION: 09/17/2017 PREOPERATIVE DIAGNOSES: 1. Painful total elbow of the right elbow. 2. Severe rheumatoid arthritis. POSTOPERATIVE DIAGNOSES: 1. Painful total elbow of the right elbow. 2. Severe rheumatoid arthritis. PROCEDURES: Resection of a total elbow prosthesis with removal of tissue to include skin, subcutaneous tissue, portions of fat, fascia, bone, and cement. SURGEON: Owen Davenport MD ANESTHESIA: General. INTRAOPERATIVE COMPLICATIONS: None. SUMMARY OF PATHOLOGIC FINDINGS: Ulnar was grossly loose as was the humeral component likely owing to this patient's longstanding rheumatoid arthritis. All cement was removed. No cement spacer was put back into place. As I fear this may actually be infected, cultures were taken. OPERATIVE SUMMARY IN DETAIL: After obtaining the appropriate preoperative orthopedic surgery consents as well as anesthetic consultation, evaluation and clearance, the patient was brought to the operating room and placed on the operating table in supine position. After general laryngeal mask was administered, the patient was placed in a left lateral decubitus position. All pressure points were well padded to include down leg peroneal pad as well as axillary roll. The patient was held firmly to the operating table using the vacuum pack suction system. The right lower extremity and shoulder were prepped and draped in routine sterile fashion. Incision was made over the previous incision, taken down to the level of the olecranon. Subperiosteal dissection and lateral triceps splitting approach was utilized with peel back. The joint capsule was incised. Fluid was then sent for culture, Gram stain, aerobic, anaerobic culture. At this point, the hinged component of the elbow was unlocked. Screw was removed. The top portion was taken out and the ulnar piece came out with little degree of difficulty; however, much of the cement remained behind. The humeral portion came out with all cement in toto. Having completed the removal of the elbow component, serial and sequential removal of all cement from both the humerus and the ulna was done. Having removed all this, copious irrigation was then followed by a deep capsular closure, superficial closure was achieved with #1 Vicryl, 2-0 Vicryl, and skin gaston. Sterile dressings were applied. The posterior splint was placed. The patient was awakened, LMA was removed. She was taken to recovery room in stable condition. All final needle and sponge counts were correct. TRANSINT:[id number] Voice Confirmation ID: [id number] DOCUMENT ID: [id number] OPERATIVE REPORT [id number] RENE KNUTSON MD, OWEN TERAN at 1158 CC: [id number] DICTATION DATE: 09/17/17 1257 PATIENT ATTENDANT: 09/17/17 1437 ADM IN [place] [id number] [id number]
[~2017-09-17 08:40] MED LIST changes: +NORVASC10 MG PO
[2017-09-17 09:15] VITALS: BP 130/86; Ht 152.4 cm; Wt 47.2 kg
[2017-09-17 14:59] VITALS: BP 127/76
[2017-09-17 21:20] VITALS: BP 126/74
[2017-09-18 00:38] VITALS: BP 102/74
[2017-09-18 05:04] VITALS: BP 128/78
[2017-09-18 05:12] LABS: HEMATOCRIT 27.9 % (36.0-48.0); HEMOGLOBIN 9.1 g/dL (12-16)
[2017-09-18 08:43] VITALS: BP 121/89
[2017-09-18 13:00] VITALS: BP 120/72
[2017-09-18 16:08] VITALS: BP 135/75
[2017-09-18 20:00] VITALS: BP 128/84
[2017-09-19] VITALS: BP 127/82
[2017-09-19 04:00] VITALS: BP 108/77
[2017-09-19 05:59] LABS: HEMATOCRIT 28.7 % (36.0-48.0); HEMOGLOBIN 9.5 g/dL (12-16)
[2017-09-19 10:15] VITALS: BP 126/77
[2017-09-19 12:17] VITALS: BP 104/71
[2017-09-19 17:06] VITALS: BP 193/77
[2017-09-19 20:49] VITALS: BP 128/76
[2017-09-20 00:52] VITALS: BP 114/70
[2017-09-20 04:17] VITALS: BP 164/46
[2017-09-20 06:56] LABS: HEMATOCRIT 27.6 % (36.0-48.0)
[2017-09-20 09:09] VITALS: BP 125/86
[2017-09-20 12:31] VITALS: BP 108/60
[2017-09-20 19:34] VITALS: BP 110/60
[2017-09-21 00:58] VITALS: BP 143/81
[2017-09-21 04:05] VITALS: BP 155/78
[2017-09-21] MEDS ORDERED: VIBRAMYCIN 100100 MG PO (08:13)
[2017-09-21] MEDS ORDERED: PERCOCET 10/3251 TA1 PO (08:13)
[2017-09-21 08:25] VITALS: BP 114/76
[2017-10-11 17:07] LABS: AEROBE ID Final report (())
== END 2017-09-21 09:45 | disposition home or self-care (01) | DRG 497 ==
LOC: D.SDCHOLD 08:40 → D.MS 08:40 → D.SDCHOLD 11:15 → D.MS 14:23
PROVIDERS: Anesthesiology; Orthopaedic Surgery
PROC: 0RPL0JZ Removal of Synthetic Substitute from Right Elbow Joint, Open Approach (ICD-10-PCS; principal; 2017-09-17 11:15)
DX: T84.84XA Pain due to internal orthopedic prosthetic devices, implants and grafts, initial encounter (principal); T84.038A Mechanical loosening of other internal prosthetic joint, initial encounter; M06.9 Rheumatoid arthritis, unspecified; D63.8 Anemia in other chronic diseases classified elsewhere; F17.200 Nicotine dependence, unspecified, uncomplicated; I25.10 Atherosclerotic heart disease of native coronary artery without angina pectoris; I10 Essential (primary) hypertension; J45.909 Unspecified asthma, uncomplicated

== ENCOUNTER 2017-11-26 08:24 | Inpatient (IN) | payer MEDICARE ==
[~2017-11-26] VITALS: Ht 152.4 cm; Wt 44.5 kg
[2017-11-26 10:00] VITALS: BP 110/70
[2017-11-26 10:18] LABS: BASOPHILS 0.2 % (0-2); EOSINOPHILS 2.3 % (0-7); IMMATURE GRANULOCYTES 0.2 % (0-5); LYMPHOCYTES 22.3 % (15-50); MCH 27.9 pg (26.0-34.0); MCHC 34.5 g/dL (31.0-37.0); MCV 80.8 fL (80.0-100.0); MEAN PLATELET VOLUME 11.7 fL (7.4-10.4); MONOCYTES 5.8 % (2-11); NEUTROPHILS 69.2 % (40-80); RBC 3.59 10x6/uL (4.00-5.40); WBC 9.3 10x3/uL (4.8-10.8)
[2017-11-26 10:20] LABS: PROTIME 12.8 SECONDS (11.6-15.0)
[2017-11-26 10:21] LABS: PLATELET COUNT 394 10x3/uL (130-400)
[2017-11-26 10:45] LABS: ALBUMIN 3.3 g/dL (3.4-5.0); ALKALINE PHOSPHATASE 82 U/L (46-116); ALT (SGPT) 10 U/L (10-68); CALC OSMOLALITY 270 mosm/kg (275-300); CALCIUM 9.1 mg/dL (8.5-10.1); CARBON DIOXIDE 25.9 mmol/L (21.0-32.0); CHLORIDE - SERUM 104 mmol/L (98-107); CREATININE - SERUM 0.6 mg/dL (0.6-1.3); GLUCOSE 81 mg/dL (74-106); PROTEIN - SERUM 7.9 g/dL (6.4-8.2); SODIUM 137 mmol/L (136-145); UREA NITROGEN 8 mg/dL (7-18); eGFR NON AFRICAN AMERICAN > 90 mL/min (90-120)
[2017-11-26 11:00] VITALS: BP 118/64
[2017-11-26 12:00] VITALS: BP 122/72
[2017-11-26 15:00] VITALS: BP 109/71; BMI 19.1
[2017-11-26 16:00] VITALS: BP 110/66
[2017-11-26 20:00] VITALS: BP 107/63
[2017-11-27] VITALS: BP 112/67
[2017-11-27 04:00] VITALS: BP 130/83
[2017-11-27 05:49] LABS: ALBUMIN 2.6 g/dL (3.4-5.0); ALKALINE PHOSPHATASE 71 U/L (46-116); BILIRUBIN - TOTAL 0.22 mg/dL (0.2-1.3); CALC OSMOLALITY 274 mosm/kg (275-300); CALCIUM 8.5 mg/dL (8.5-10.1); CARBON DIOXIDE 28.4 mmol/L (21.0-32.0); CHLORIDE - SERUM 106 mmol/L (98-107); CREATININE - SERUM 0.7 mg/dL (0.6-1.3); GLUCOSE 92 mg/dL (74-106); POTASSIUM - SERUM 3.9 mmol/L (3.5-5.1); PROTEIN - SERUM 6.5 g/dL (6.4-8.2); SODIUM 138 mmol/L (136-145); UREA NITROGEN 9 mg/dL (7-18); eGFR NON AFRICAN AMERICAN > 90 mL/min (90-120)
[2017-11-27 05:51] LABS: ALT (SGPT) 7 U/L (10-68)
[2017-11-27 05:58] LABS: BASOPHILS 0.4 % (0-2); EOSINOPHILS 5.4 % (0-7); HEMATOCRIT 26.9 % (36.0-48.0); HEMOGLOBIN 8.9 g/dL (12-16); LYMPHOCYTES 40.6 % (15-50); MCH 27.1 pg (26.0-34.0); MCHC 33.1 g/dL (31.0-37.0); MCV 81.8 fL (80.0-100.0); MEAN PLATELET VOLUME 11.1 fL (7.4-10.4); MONOCYTES 8.7 % (2-11); NEUTROPHILS 44.9 % (40-80); RBC 3.29 10x6/uL (4.00-5.40); RDW 15.9 % (11.5-14.5)
[2017-11-27 06:01] LABS: PLATELET COUNT 307 10x3/uL (130-400); WBC 5.5 10x3/uL (4.8-10.8)
[2017-11-27 08:30] VITALS: BP 107/63
[2017-11-27 12:57] VITALS: BP 107/72
[2017-11-27 13:37] VITALS: Ht 152.4 cm; Wt 44.5 kg
[2017-11-27 15:22] LABS: % SATURATION 10 % (15-55); IRON 22 ug/dl (35-150); TOTAL IRON BIND CAPACITY 220 ug/dl (260-445); UNSAT IRON BIND CAPACITY 198 ug/dl (150-375)
[2017-11-27 16:32] VITALS: BP 101/63
[2017-11-27 20:00] VITALS: BP 113/58
[2017-11-28] VITALS: BP 141/73
[2017-11-28 04:00] VITALS: BP 160/105
[2017-11-28 05:58] LABS: BASOPHILS 0.3 % (0-2); EOSINOPHILS 1.8 % (0-7); HEMOGLOBIN 8.7 g/dL (12-16); IMMATURE GRANULOCYTES 0.1 % (0-5); LYMPHOCYTES 34.2 % (15-50); MCH 27.3 pg (26.0-34.0); MCHC 33.5 g/dL (31.0-37.0); MCV 81.5 fL (80.0-100.0); MEAN PLATELET VOLUME 11.6 fL (7.4-10.4); MONOCYTES 8.8 % (2-11); NEUTROPHILS 54.8 % (40-80); PLATELET COUNT 311 10x3/uL (130-400); RBC 3.19 10x6/uL (4.00-5.40); RDW 15.8 % (11.5-14.5)
[2017-11-28 06:05] LABS: WBC 7.6 10x3/uL (4.8-10.8)
[2017-11-28 06:18] LABS: CALC OSMOLALITY 280 mosm/kg (275-300); CALCIUM 8.5 mg/dL (8.5-10.1); CARBON DIOXIDE 31.2 mmol/L (21.0-32.0); CHLORIDE - SERUM 106 mmol/L (98-107); CREATININE - SERUM 0.6 mg/dL (0.6-1.3); GLUCOSE 96 mg/dL (74-106); SODIUM 142 mmol/L (136-145); UREA NITROGEN 8 mg/dL (7-18); eGFR NON AFRICAN AMERICAN > 90 mL/min (90-120)
[2017-11-28 08:19] LABS: FOLATE (FOLIC ACID) - SERUM 10.5 ng/mL (>3.0)
[2017-11-28 09:24] VITALS: BP 123/86
[2017-11-28 12:59] VITALS: BP 120/82
[2017-11-28 19:07] LABS: CKMB 1.8 U/L (0.0-3.6); CREATINE KINASE 45 UL (21-215)
[2017-11-28 19:17] LABS: TROPONIN-I < 0.017 ng/mL (0.000-0.060)
[2017-11-28 20:00] VITALS: BP 115/74
[2017-11-29] VITALS: BP 96/61
[2017-11-29 01:52] LABS: CKMB 1.6 U/L (0.0-3.6); CREATINE KINASE 37 UL (21-215); TROPONIN-I < 0.017 ng/mL (0.000-0.060)
[2017-11-29 04:00] VITALS: BP 125/80
[2017-11-29 06:48] LABS: BASOPHILS 0.2 % (0-2); EOSINOPHILS 4.1 % (0-7); HEMATOCRIT 26.6 % (36.0-48.0); HEMOGLOBIN 8.8 g/dL (12-16); IMMATURE GRANULOCYTES 0.2 % (0-5); MCH 27.2 pg (26.0-34.0); MCHC 33.1 g/dL (31.0-37.0); MCV 82.4 fL (80.0-100.0); MEAN PLATELET VOLUME 10.7 fL (7.4-10.4); MONOCYTES 6.6 % (2-11); NEUTROPHILS 49.9 % (40-80); PLATELET COUNT 313 10x3/uL (130-400); RBC 3.23 10x6/uL (4.00-5.40); WBC 6.4 10x3/uL (4.8-10.8)
[2017-11-29 07:31] LABS: CKMB 1.9 U/L (0.0-3.6); CREATINE KINASE 31 UL (21-215); TROPONIN-I < 0.017 ng/mL (0.000-0.060)
[2017-11-29 07:52] LABS: CALC OSMOLALITY 287 mosm/kg (275-300); CALCIUM 8.5 mg/dL (8.5-10.1); CARBON DIOXIDE 31.7 mmol/L (21.0-32.0); CHLORIDE - SERUM 106 mmol/L (98-107); CREATININE - SERUM 0.7 mg/dL (0.6-1.3); GLUCOSE 101 mg/dL (74-106); POTASSIUM - SERUM 4.1 mmol/L (3.5-5.1); SODIUM 145 mmol/L (136-145); UREA NITROGEN 9 mg/dL (7-18); eGFR NON AFRICAN AMERICAN > 90 mL/min (90-120)
[2017-11-29] MEDS ORDERED: SOMA350 MG PO (08:39)
[2017-11-29] MEDS ORDERED: LOVENOX40 MG/0.4 SC (08:39)
[2017-11-29] MEDS ORDERED: PROTONIX40 MG PO (08:39)
[2017-11-29 08:41] VITALS: BP 125/74
[2017-11-29 11:58] VITALS: BP 129/77
[2017-11-29] MEDS ORDERED: ELIQUIS5 MG PO (13:22)
[2017-11-29] MEDS ORDERED: PERCOCET 10/3251 TA1 PO (15:10)
== END 2017-11-29 15:30 | disposition home or self-care (01) | DRG 536 ==
LOC: D.ER 08:24 → D.MS 12:05 → D.EDHOLD 12:05 → D.MS 12:29
PROVIDERS: Family Medicine; Internal Medicine Nephrology
DX: S72.115A Nondisplaced fracture of greater trochanter of left femur, initial encounter for closed fracture (principal); F17.203 Nicotine dependence unspecified, with withdrawal; W19.XXXA Unspecified fall, initial encounter; J45.909 Unspecified asthma, uncomplicated; I10 Essential (primary) hypertension; M06.9 Rheumatoid arthritis, unspecified; D50.9 Iron deficiency anemia, unspecified; R53.81 Other malaise

== ENCOUNTER 2017-12-09 13:39 | Emergency (ER) | payer MEDICARE ==
[~2017-12-09] VITALS: Ht 152.4 cm; Wt 44.1 kg
[~2017-12-09 13:39] MED LIST changes: +ELIQUIS5 MG PO; +LOVENOX40 MG/0.4 SC; +PROTONIX40 MG PO
[2017-12-09 13:46] VITALS: Ht 152.4 cm; Wt 44.1 kg
[2017-12-09] MEDS ORDERED: ROBAXIN-750750 MG PO (16:36)
[2017-12-09] MEDS ORDERED: PREDNISONE20 MG PO (16:36)
[2017-12-09 18:35] VITALS: BP 122/79
== END 2017-12-09 18:07 | disposition home or self-care (01) ==
LOC: D.ER 13:39
DX: M25.552 Pain in left hip (principal); M79.1 Myalgia; M06.9 Rheumatoid arthritis, unspecified; I10 Essential (primary) hypertension; F17.200 Nicotine dependence, unspecified, uncomplicated

== ENCOUNTER → 2018-05-20 12:33 | Outpatient (CLI) | payer MEDICARE ==
[2017-12-09 13:46] VITALS: BMI 18.9
[~2018-05-20 12:33] MED LIST changes: +PREDNISONE20 MG PO; +ROBAXIN-750750 MG PO
== END | disposition home or self-care (01) ==
LOC: D.MRI 12:33
DX: M25.552 Pain in left hip (principal)

== ENCOUNTER → 2018-08-13 16:25 | Outpatient (CLI) | payer MEDICARE ==
[2017-12-09 13:46] VITALS: BMI 18.9
== END | disposition home or self-care (01) ==
LOC: D.MAMMO 09:30
PROVIDERS: ATTEND Family Medicine
DX: Z12.31 Encounter for screening mammogram for malignant neoplasm of breast (principal)

== ENCOUNTER 2018-09-01 18:57 | Emergency (ER) | payer MEDICARE ==
[~2018-09-01] VITALS: Ht 152.4 cm; Wt 46.8 kg
[2018-09-01 18:59] VITALS: Ht 152.4 cm; Wt 46.8 kg
[2018-09-01] MEDS ORDERED: ZOFRAN4 MG PO (20:45)
[2018-09-01] MEDS ORDERED: IMITREX100 MG PO (20:45)
[2018-09-01] MEDS ORDERED: BACLOFEN20 M1 PO (20:45)
[2018-09-01 21:07] VITALS: BP 122/76
== END 2018-09-01 20:55 | disposition home or self-care (01) ==
LOC: D.ER 18:57
DX: R51 Headache (principal); M62.838 Other muscle spasm

== ENCOUNTER 2018-09-17 19:56 | Emergency (ER) | payer MEDICARE ==
[~2018-09-17 19:56] MED LIST changes: +BACLOFEN20 M1 PO; +ZOFRAN4 MG PO
[2018-09-17 20:07] VITALS: BMI 21.1
[2018-09-17] MEDS ORDERED: CLEOCIN HCL300 MG PO (22:05)
[2018-09-17 22:48] VITALS: BP 174/117
== END 2018-09-17 22:48 | disposition home or self-care (01) ==
LOC: D.ER 19:56
DX: K02.9 Dental caries, unspecified (principal)

== ENCOUNTER 2018-11-02 18:55 | Emergency (ER) | payer MEDICARE | END 2018-11-02 19:31 | disposition left against medical advice (07) | LOC: D.ER 18:55 | DX: G43.909 Migraine, unspecified, not intractable, without status migrainosus (principal) ==

== ENCOUNTER 2018-12-02 23:45 | Emergency (ER) | payer MEDICARE ==
[~2018-12-02] VITALS: Ht 152.4 cm; Wt 50.0 kg
[2018-12-02 23:55] VITALS: Ht 152.4 cm; Wt 50.0 kg
[2018-12-03] MEDS ORDERED: PENICILLIN V P500 MG PO (00:18)
[2018-12-03] MEDS ORDERED: HYDROCODON-ACE1 EA10 PO (00:18)
[2018-12-03 00:50] VITALS: BP 188/101
== END 2018-12-03 00:50 | disposition home or self-care (01) ==
LOC: D.ER 23:45
DX: K08.89 Other specified disorders of teeth and supporting structures (principal); K02.9 Dental caries, unspecified; K04.7 Periapical abscess without sinus; S02.5XXA Fracture of tooth (traumatic), initial encounter for closed fracture; X58.XXXA Exposure to other specified factors, initial encounter; Y93.89 Activity, other specified; Y92.89 Other specified places as the place of occurrence of the external cause

== ENCOUNTER 2018-12-03 13:26 | Inpatient (IN) | payer MEDICARE ==
[~2018-12-03] VITALS: Ht 152.4 cm; Wt 49.9 kg
[~2018-12-03 13:26] MED LIST changes: +HYDROCODON-ACE1 EA10 PO; +PENICILLIN V P500 MG PO
[2018-12-03 14:00] VITALS: BP 201/115
[2018-12-03 14:29] LABS: BASOPHILS 0.2 % (0-2); EOSINOPHILS 0.4 % (0-7); HEMATOCRIT 34.4 % (36.0-48.0); HEMOGLOBIN 11.8 g/dL (12-16); IMMATURE GRANULOCYTES 0.1 % (0-5); LYMPHOCYTES 22.3 % (15-50); MCH 28.9 pg (26.0-34.0); MCHC 34.3 g/dL (31.0-37.0); MCV 84.3 fL (80.0-100.0); MEAN PLATELET VOLUME 11.3 fL (7.4-10.4); MONOCYTES 4.7 % (2-11); NEUTROPHILS 72.3 % (40-80); PLATELET COUNT 300 10x3/uL (130-400); RBC 4.08 10x6/uL (4.00-5.40); RDW 15.8 % (11.5-14.5); WBC 8.5 10x3/uL (4.8-10.8)
[2018-12-03 14:45] LABS: ALBUMIN 3.8 g/dL (3.4-5.0); ALKALINE PHOSPHATASE 87 U/L (46-116); ALT (SGPT) 15 U/L (10-68); BILIRUBIN - TOTAL 0.43 mg/dL (0.2-1.3); CALC OSMOLALITY 278 mosm/kg (275-300); CALCIUM 9.1 mg/dL (8.5-10.1); CARBON DIOXIDE 25.9 mmol/L (21.0-32.0); CHLORIDE - SERUM 104 mmol/L (98-107); CREATININE - SERUM 0.7 mg/dL (0.6-1.3); GLUCOSE 92 mg/dL (74-106); PROTEIN - SERUM 8.5 g/dL (6.4-8.2); SODIUM 141 mmol/L (136-145); UREA NITROGEN 6 mg/dL (7-18); eGFR NON AFRICAN AMERICAN > 90 mL/min (90-120)
--- NOTE | 2018-12-03 14:47 | NUR ---
BLANKETS PROVIDED AND LIGHTS DIMMED FOR COMFORT. PT WATCHING TV, CALL LIGHT IN REACH. PT DENIES ANY FURTHER NEEDS AT THIS TIME. WILL CONTINUE TO MONITOR.
[2018-12-03 15:00] VITALS: BP 171/103
--- NOTE | 2018-12-03 15:02 | NUR ---
PT LEAVING THE ED VIA STRETCHER AT THIS TIME. TRANSPORTED TO [facility] FOR ORDERED CT SCAN. NO SIGNS OF DISTRESS NOTED WHEN LEAVING.
--- NOTE | 2018-12-03 15:13 | NUR ---
PT BACK TO ED AT THIS TIME.
--- NOTE | 2018-12-03 16:10 | NUR ---
EDP NOTIFIED THAT CURRENT BP IS 200/106. AWAITING ORDERS.
[2018-12-03 16:20] VITALS: BP 189/109
--- NOTE | 2018-12-03 17:27 | NUR ---
REPORT RECEIVED FROM CHRYSTAL IN THE ED.
--- NOTE | 2018-12-03 17:35 | MORECARE ---
CASE MANAGEMENT DISCHARGE SUMMARY PATIENT: RENE KNUTSON UNIT: [id number] ADM DATE: 12/03/18 AGE: 53 : [birth year] SEX: F ROOM/BED: D.1208 AUTHOR: JELANI MONTES PHYSICIAN: REFERRING PHYSICIAN: SHAUNNA GABRIEL MD DATE OF SERVICE: 12/03/18 Discharge Plan Patient Name: RENE KNUTSON [facility] [facility] 1965 Planned Disposition: Anticipated Discharge Date: Discharge Date: Expected LOS: Initial Reviewer: [email or web address] Initial Review Date: 12/03/2018 Generated: 12/03/18 6:34 pm DCPIA - Discharge Planning Initial Assessment Updated by [email or web address]: Laura Rey on 12/03/18 5:30 pm * Is the patient Alert and Oriented? Yes * How many steps to enter\exit or inside your home? * PCP Dr. Gabriel * Pharmacy [facility] * Preadmission Environment Home with Family * ADLs Partial Dependent * Partial ADLs (Assistance needed) Dressing * Equipment Shower Chair * Other Equipment NA * List name and contact numbers for known caregivers / representatives who currently or will assist patient after discharge: Ramos Britton () #[phone] * Verbal permission to speak to the caregivers and representatives has been obtained from the patient. Yes * Please name any agencies selected above. [facility] in past, not current. * Additional services required to return to the preadmission environment? No * Can the patient safely return to the preadmission environment? Yes * Has this patient been hospitalized within the prior 30 days at any hospital? No Patient Name: RENE KNUTSON Page [id number] at 1732 All edits/amendments must be made on the electronic document DICTATION DATE: 12/03/181733 SUPERVISOR PLATING AND POINT ASSEMBLY: NAVDEEP 12/03/181733 RPT#: [id number] DC DATE: STATUS: ADM IN [facility] [address] [place] [address] END OF REPORT
--- NOTE | 2018-12-03 17:43 | MORECARE ---
CASE MANAGEMENT DISCHARGE SUMMARY PATIENT: RENE KNUTSON UNIT: [id number] ADM DATE: 12/03/18 AGE: 53 : 67 SEX: F ROOM/BED: D.1208 AUTHOR: SIMON,DOC PHYSICIAN: REFERRING PHYSICIAN: SHAUNNA GABRIEL MD DATE OF SERVICE: 12/03/18 Discharge Plan Patient Name: RENE KNUTSON Facility: [facility]:[place] : 1965 Planned Disposition: Anticipated Discharge Date: Discharge Date: Expected LOS: Initial Reviewer: [email or web address] Initial Review Date: 12/03/2018 Generated: 12/03/18 6:43 pm DCP- Discharge Planning Updated by [email or web address]: Laura Rey on 12/03/18 4:[address] CM met with patient to complete initial dc planning assessment. CM educated patient on the CM role and verbal consent given by patient to complete assessment. CM verified patient's address, phone number, and emergency contact phone numbers. Patient lives at home with her significant other, whom assists mostly with socks/shoes. She has been a client with [employer] in the past, but is not current. At discharge patient plans to return home with her SO, Ramos Britton and feels this is a safe discharge. Patient denied known discharge needs at this time. Patient reports her SO will transport her home at time of discharge. PCP: Dr. Gabriel. Pharmacy: [facility]UR[facility]. DME: [employer] Shower chair. Emergency contact: [phone]. Community Resources: [employer], [employer] [place]. Mr. Britton will drive patient home upon discharge. Patient denies being hospitalized in the past 30 days. CM will continue to follow and will assist as needed with dc plans/needs. Laura Rey RN DCPIA - Discharge Planning Initial Assessment Updated by [email or web address]: Laura Rey on 12/03/18 5:30 pm * Is the patient Alert and Oriented? Yes * How many steps to enter\exit or inside your home? * PCP Dr. Gabriel * Pharmacy [facility]UR[facility] * Preadmission Environment Home with Family * ADLs Partial Dependent * Partial ADLs (Assistance needed) Dressing * Equipment Shower Chair * Other Equipment NA * List name and contact numbers for known caregivers / representatives who currently or will assist patient after discharge: Ramos Britton () #[phone] * Verbal permission to speak to the caregivers and representatives has been obtained from the patient. Yes * Please name any agencies selected above. [facility] in past, not current. * Additional services required to return to the preadmission environment? No * Can the patient safely return to the preadmission environment? Yes * Has this patient been hospitalized within the prior 30 days at any hospital? No Last DP export: 12/03/18 4:35 p Patient Name: RENE KNUTSON Page [id number] at 1743 All edits/amendments must be made on the electronic document DICTATION DATE: 12/03/181742 BLASTING WORKER: NAVDEEP 12/03/181742 RPT#: [id number] DC DATE: STATUS: ADM IN [facility] [address] [place] [address] END OF REPORT
--- NOTE | 2018-12-03 17:49 | NUR ---
RECIEVED PT FROM ER. R AC PIV INFUSING NS @ 125 AND VANC. PT IS A&O. PT STATES HER PAIN IS AN 8/10 IN HER JAW. WILL GIVE HYDRO ONCE STRAWBERRY ENSURES ARRIVE ON FLOOR.
[2018-12-03 18:08] VITALS: BP 155/86; BMI 21.5
[2018-12-03 20:00] VITALS: BP 149/91
[2018-12-04] VITALS: BP 124/73
[2018-12-04 04:00] VITALS: BP 142/77
[2018-12-04 06:05] LABS: BASOPHILS 0.1 % (0-2); EOSINOPHILS 3.4 % (0-7); HEMATOCRIT 30.5 % (36.0-48.0); HEMOGLOBIN 10.4 g/dL (12-16); IMMATURE GRANULOCYTES 0.1 % (0-5); LYMPHOCYTES 25.9 % (15-50); MCHC 34.1 g/dL (31.0-37.0); MEAN PLATELET VOLUME 11.2 fL (7.4-10.4); MONOCYTES 3.9 % (2-11); NEUTROPHILS 66.6 % (40-80); PLATELET COUNT 257 10x3/uL (130-400); RBC 3.59 10x6/uL (4.00-5.40); RDW 15.9 % (11.5-14.5); WBC 7.9 10x3/uL (4.8-10.8)
[2018-12-04 06:33] LABS: ALKALINE PHOSPHATASE 64 U/L (46-116); ALT (SGPT) 15 U/L (10-68); BILIRUBIN - TOTAL 0.67 mg/dL (0.2-1.3); C-REACTIVE PROTEIN 1.6 mg/dL (0.0-0.9); CALC OSMOLALITY 279 mosm/kg (275-300); CALCIUM 7.9 mg/dL (8.5-10.1); CARBON DIOXIDE 24.8 mmol/L (21.0-32.0); CHLORIDE - SERUM 109 mmol/L (98-107); CREATININE - SERUM 0.8 mg/dL (0.6-1.3); GLUCOSE 85 mg/dL (74-106); POTASSIUM - SERUM 3.4 mmol/L (3.5-5.1); PROTEIN - SERUM 6.6 g/dL (6.4-8.2); SODIUM 142 mmol/L (136-145); UREA NITROGEN 7 mg/dL (7-18); eGFR NON AFRICAN AMERICAN 80 mL/min (90-120)
[2018-12-04 06:34] LABS: ALBUMIN 2.8 g/dL (3.4-5.0)
--- NOTE | 2018-12-04 07:28 | NUR ---
PT SHOUTED FOR A NURSE, UPON ENTERING THE ROOM THE PT STATED "THERE'S BLOOD". PT IV HAD COME OUT OF ARM. DC'D COMPLETELY WITH CATHETER TIP INTACT, 4X4 AND TAPE PLACED OVER SITE. DENIES ANY NEEDS AT THIS TIME. PT IS ALERT AND ORIENTED X3. WILL CTM.
--- NOTE | 2018-12-04 09:32 | NUR ---
ADMINISTERED MEDICATION AT THIS TIME, NO TROUBLE SWALLOWING. HUNG NEW IV ANTIBIOTICS NO COMPLAINT OF IV PAIN. IV RECITED TO RIGHT FOREARM. DENIES OTHER NEEDS AT THIS TIME. WILL CTM.
--- NOTE | 2018-12-04 09:33 | NUR ---
VITALS ASSESSED AT THIS TIME, ALL VITALS STABLE. SLIGHT BP ELEVATION AT 143/85.
[2018-12-04 10:28] VITALS: Ht 152.4 cm; Wt 49.9 kg
--- NOTE | 2018-12-04 11:05 | MORECARE ---
CASE MANAGEMENT DISCHARGE SUMMARY PATIENT: RENE KNUTSON UNIT: [id number] ADM DATE: 12/03/18 AGE: 53 : 67 SEX: F ROOM/BED: D.1208 AUTHOR: SIMON,DOC PHYSICIAN: REFERRING PHYSICIAN: SHAUNNA GABRIEL MD DATE OF SERVICE: 12/04/18 Discharge Plan Patient Name: RENE KNUTSON Facility: [facility]:[place] : 1965 Planned Disposition: Home Anticipated Discharge Date: Discharge Date: Expected LOS: Initial Reviewer: [email or web address] Initial Review Date: 12/03/2018 Generated: 12/04/18 12:04 pm DCP- Discharge Planning Updated by [email or web address]: Laura Rey on 12/03/18 4:[address] CM met with patient to complete initial dc planning assessment. CM educated patient on the CM role and verbal consent given by patient to complete assessment. CM verified patient's address, phone number, and emergency contact phone numbers. Patient lives at home with her significant other, whom assists mostly with socks/shoes. She has been a client with [employer] in the past, but is not current. At discharge patient plans to return home with her SO, Ramos Britton and feels this is a safe discharge. Patient denied known discharge needs at this time. Patient reports her SO will transport her home at time of discharge. PCP: Dr. Gabriel. Pharmacy: [facility] S[facility]. DME: [employer], Shower chair. Emergency contact: [phone]. Community Resources: [employer], [employer] [place]. Mr. Britton will drive patient home upon discharge. Patient denies being hospitalized in the past 30 days. CM will continue to follow and will assist as needed with dc plans/needs. Laura Rey RN DCPIA - Discharge Planning Initial Assessment Updated by [email or web address]: Laura Rey on 12/03/18 5:30 pm * Is the patient Alert and Oriented? Yes * How many steps to enter\exit or inside your home? * PCP Dr. Gabriel * Pharmacy [facility] * Preadmission Environment Home with Family * ADLs Partial Dependent * Partial ADLs (Assistance needed) Dressing * Equipment Shower Chair * Other Equipment NA * List name and contact numbers for known caregivers / representatives who currently or will assist patient after discharge: Ramos Britton () #[phone] * Verbal permission to speak to the caregivers and representatives has been obtained from the patient. Yes * Please name any agencies selected above. [facility] in past, not current. * Additional services required to return to the preadmission environment? No * Can the patient safely return to the preadmission environment? Yes * Has this patient been hospitalized within the prior 30 days at any hospital? No Last DP export: 12/03/18 4:43 p Patient Name: RENE KNUTSON Page [id number] at 1105 All edits/amendments must be made on the electronic document DICTATION DATE: 12/04/181103 OPERATIONAL ASSISTANT: NAVDEEP 12/04/181103 RPT#: [id number] DC DATE: STATUS: ADM IN [facility] [address] [place] [address] END OF REPORT
--- NOTE | 2018-12-04 11:20 | NUR ---
ADMINISTERED MEDICATION AT THIS TIME, NO TROUBLE SWALLOWING. PT OUTSIDE TO PT PATIO WITH FAMILY MEMBER. DENIES OTHER NEEDS. WILL CTM.
[2018-12-04 11:24] VITALS: BP 143/85
--- NOTE | 2018-12-04 13:06 | NUR ---
ADMINISTERED PRN NORCO FOR PAIN LEVEL OF 8/10. NO TROUBLE SWALLOWING. DENIES OTHER NEEDS. WILL CTM.
--- NOTE | 2018-12-04 16:02 | NUR ---
PT RESTING COMFORTABLY IN BED, NO S/S OF DISTRESS. DENIES NEEDS. WILL CTM.
--- NOTE | 2018-12-04 16:55 | NUR ---
ADMINISTERED PRN MORPHINE FOR PAIN LEVEL OF 10/10 PER PT STATEMENT. HUNG IV ANTIBIOTICS, NO COMPLAINT OF IV PAIN. DENIES ANY NEEDS AT THIS TIME, FAMILY AT BEDSIDE. WILL CTM.
--- NOTE | 2018-12-04 18:08 | NUR ---
HUNG IV ANTIBIOTICS, NO IV PAIN COMPLAINT. PT RESTING COMFORTABLY IN BED, DENIES ANY NEEDS AT THIS TIME. WILL CTM.
--- NOTE | 2018-12-04 19:22 | NUR ---
PATIENT RESTING IN BED WITH NO S/S OF DISTRESS. VSS. PATIENT REQUESTED NORCO IF DUE FOR 9/10 PAIN. PATIENT DENIES OTHER NEEDS AT THIS TIME. BED IN LOWEST POSITION AND CALL LIGHT WITHIN REACH. ENCOURAGED THE PATIENT TO CALL IF SHE HAS NEEDS. WILL CONTINUE TO MONITOR.
[2018-12-04 20:00] VITALS: BP 140/93
[2018-12-05 00:15] VITALS: BP 146/93
[2018-12-05 04:23] VITALS: BP 161/94
[2018-12-05 06:08] LABS: BASOPHILS 0.1 % (0-2); EOSINOPHILS 3.9 % (0-7); HEMATOCRIT 31.2 % (36.0-48.0); HEMOGLOBIN 10.7 g/dL (12-16); IMMATURE GRANULOCYTES 0.1 % (0-5); LYMPHOCYTES 35.2 % (15-50); MCHC 34.3 g/dL (31.0-37.0); MCV 84.6 fL (80.0-100.0); MEAN PLATELET VOLUME 11.3 fL (7.4-10.4); NEUTROPHILS 53.7 % (40-80); PLATELET COUNT 266 10x3/uL (130-400); RBC 3.69 10x6/uL (4.00-5.40); RDW 15.7 % (11.5-14.5); WBC 6.7 10x3/uL (4.8-10.8)
[2018-12-05 06:28] LABS: C-REACTIVE PROTEIN 1.7 mg/dL (0.0-0.9); CALC OSMOLALITY 278 mosm/kg (275-300); CALCIUM 8.7 mg/dL (8.5-10.1); CARBON DIOXIDE 26.4 mmol/L (21.0-32.0); CHLORIDE - SERUM 107 mmol/L (98-107); CREATININE - SERUM 0.7 mg/dL (0.6-1.3); GLUCOSE 86 mg/dL (74-106); POTASSIUM - SERUM 3.2 mmol/L (3.5-5.1); SODIUM 142 mmol/L (136-145); VANCOMYCIN - TROUGH 13.1 ug/mL (10.0-20.0); eGFR NON AFRICAN AMERICAN > 90 mL/min (90-120)
[2018-12-05 06:36] LABS: UREA NITROGEN 4 mg/dL (7-18)
[2018-12-05 07:19] VITALS: BP 154/87
--- NOTE | 2018-12-05 07:28 | NUR ---
PT SITTING UP IN BED STATED SLEPT PRETTY WILL BUT RA WAS REALLY BOTHERING HER AND RAIN LAST NIGHT MADE IT WORSE. NO S/S OF DISTRESS, NO NEEDS VOICED, ASSUME AND CONTINUE CARE
[2018-12-05 11:40] VITALS: BP 127/86
--- NOTE | 2018-12-05 11:43 | NUR ---
PT STATED PAIN IS AT A 7 AND "WHEN THE WEATHER GETS LIKE THIS IT'S REAL BAD", ADMINISTERED PRN PAIN MEDICATION, PT THEN ASKED DR GABRIEL FOR BENADRYL, ADMINISTERED PRN BENADRYL WELL, CONTINUE WITH PLAN OF CARE
--- NOTE | 2018-12-05 18:55 | NUR ---
EVENING ROUNDS COMPLETE, PT LAYING IN BED. NO SIGNS OF DISTRESS. PT C/O 8/10 PAIN IN HER FACE, NECK AND EYE AREA. PRN MORPHINE GIVEN. PT DENIES ANY FURTHER NEEDS AT THIS TIME. CL IN REACH, BED IN LOWEST POSITION. CONT WITH POC.
[2018-12-05 19:35] VITALS: BP 127/77
[2018-12-06 00:29] VITALS: BP 134/82
[2018-12-06 03:36] VITALS: BP 151/92
[2018-12-06 06:40] LABS: C-REACTIVE PROTEIN 0.7 mg/dL (0.0-0.9); CALCIUM 8.5 mg/dL (8.5-10.1); CARBON DIOXIDE 25.7 mmol/L (21.0-32.0); CHLORIDE - SERUM 109 mmol/L (98-107); CREATININE - SERUM 0.8 mg/dL (0.6-1.3); GLUCOSE 87 mg/dL (74-106); SODIUM 144 mmol/L (136-145); eGFR NON AFRICAN AMERICAN 80 mL/min (90-120)
[2018-12-06 06:41] LABS: CALC OSMOLALITY 283 mosm/kg (275-300); POTASSIUM - SERUM 3.4 mmol/L (3.5-5.1); UREA NITROGEN 8 mg/dL (7-18)
--- NOTE | 2018-12-06 07:15 | NUR ---
PT RESTING COMFORTABLY IN BED. ALERT AND ORIENTED X2. IV TO RIGHT FOREARM WITH NS AND K @ 75. DENIES ANY NEEDS AT THIS TIME. WILL CTM.
[2018-12-06 07:39] VITALS: BP 158/93
--- NOTE | 2018-12-06 08:22 | NUR ---
ADMINISTERED MEDICATION AT THIS TIME, NO TROUBLE SWALLOWING. ADMINISTERED PRN MORPHINE FOR PAIN LEVEL OF 8/10, TOLERATED WELL. RESTING COMFORTABLY IN BED, FAMILY AT BEDSIDE. DENIES ANY NEEDS. WILL CTM.
--- NOTE | 2018-12-06 11:13 | NUR ---
ADMINISTERED MEDICATION AT THIS TIME, NO TROUBLE SWALLOWING. PROVIDED PT WITH DRINK. RESTING COMFORTABLY IN BED. DENIES ANY NEEDS. WILL CTM.
--- NOTE | 2018-12-06 12:02 | NUR ---
I have reviewed this patient and I concur with the Shift Assessment completed by the Licensed Practical Nurse today this shift.
[2018-12-06] MEDS ORDERED: AMOXICILLIN500 M1 PO (12:37)
--- NOTE | 2018-12-06 20:36 | MORECARE ---
CASE MANAGEMENT DISCHARGE SUMMARY PATIENT: RENE KNUTSON UNIT: [id number] ADM DATE: 12/03/18 AGE: 53 : 67 SEX: F ROOM/BED: D.1208 AUTHOR: SIMON,DOC PHYSICIAN: REFERRING PHYSICIAN: SHAUNNA GABRIEL MD DATE OF SERVICE: 12/06/18 Discharge Plan Patient Name: RENE KNUTSON Facility: [facility]:[place] : 1965 Planned Disposition: Home Anticipated Discharge Date: Discharge Date: 12/06/2018 Expected LOS: Initial Reviewer: [email or web address] Initial Review Date: 12/03/2018 Generated: 12/06/18 9:36 pm DCP- Discharge Planning Updated by [email or web address]: Laura Rey on 12/03/18 4:[address] CM met with patient to complete initial dc planning assessment. CM educated patient on the CM role and verbal consent given by patient to complete assessment. CM verified patient's address, phone number, and emergency contact phone numbers. Patient lives at home with her significant other, whom assists mostly with socks/shoes. She has been a client with [employer] in the past, but is not current. At discharge patient plans to return home with her SO, Ramos Britton and feels this is a safe discharge. Patient denied known discharge needs at this time. Patient reports her SO will transport her home at time of discharge. PCP: Dr. Gabriel. Pharmacy: [facility]. DME: [employer], Shower chair. Emergency contact: [phone]. Community Resources: [employer], [employer] [place]. Mr. Britton will drive patient home upon discharge. Patient denies being hospitalized in the past 30 days. CM will continue to follow and will assist as needed with dc plans/needs. Laura Rey RN DCPIA - Discharge Planning Initial Assessment Updated by [email or web address]: Laura Rey on 12/03/18 5:30 pm * Is the patient Alert and Oriented? Yes * How many steps to enter\exit or inside your home? * PCP Dr. Gabriel * Pharmacy [facility] * Preadmission Environment Home with Family * ADLs Partial Dependent * Partial ADLs (Assistance needed) Dressing * Equipment Shower Chair * Other Equipment NA * List name and contact numbers for known caregivers / representatives who currently or will assist patient after discharge: Ramos Britton () #[phone] * Verbal permission to speak to the caregivers and representatives has been obtained from the patient. Yes * Please name any agencies selected above. [facility] in past, not current. * Additional services required to return to the preadmission environment? No * Can the patient safely return to the preadmission environment? Yes * Has this patient been hospitalized within the prior 30 days at any hospital? No Coverage Notice Reviewer: [email or web address] Fan Carpio Notice Issued Date-Time: 12/06/2018 10:56 Notice Type: IM Discharge Notice Notice Delivered To: Patient Relationship to Patient: Self Zipper Trimmer Hand Name: Delivery Method: HAND - Hand Delivered Haylee Days: Prior Verbal Notification: Recipient Understood Notice: Yes Recipient Signature: Yes Med Rec Note Co-signed by Attending: Coverage Notice Comment: Last DP export: 12/04/18 10:05 a Patient Name: RENE KNUTSON Page [id number] at 2035 All edits/amendments must be made on the electronic document DICTATION DATE: 12/06/182035 MIXER OPERATOR HOT METAL: NAVDEEP 12/06/182035 RPT#: [id number] DC DATE:12/06/18 STATUS: DIS IN [facility] [address] [place] [address] END OF REPORT
== END 2018-12-06 13:44 | disposition home or self-care (01) | DRG 158 ==
LOC: D.ER 13:26 → D.M3 16:37
PROVIDERS: Family Medicine; ADMIT Family Medicine; ATTEND Family Medicine
DX: K04.7 Periapical abscess without sinus (principal); L03.211 Cellulitis of face; F17.213 Nicotine dependence, cigarettes, with withdrawal; D64.9 Anemia, unspecified; I10 Essential (primary) hypertension; E87.6 Hypokalemia; M06.9 Rheumatoid arthritis, unspecified; K02.9 Dental caries, unspecified; S02.5XXA Fracture of tooth (traumatic), initial encounter for closed fracture; X58.XXXA Exposure to other specified factors, initial encounter

== ENCOUNTER 2018-12-31 20:43 | Emergency (ER) | payer MEDICARE ==
[~2018-12-31] VITALS: Ht 152.4 cm; Wt 48.6 kg
[~2018-12-31 20:43] MED LIST changes: +AMOXICILLIN500 M1 PO
[2018-12-31 20:54] LABS: BASOPHILS 0.2 % (0-2); EOSINOPHILS 2.2 % (0-7); HEMATOCRIT 35.1 % (36.0-48.0); HEMOGLOBIN 12.3 g/dL (12-16); IMMATURE GRANULOCYTES 0.2 % (0-5); LYMPHOCYTES 27.9 % (15-50); MCH 29.7 pg (26.0-34.0); MCV 84.8 fL (80.0-100.0); MEAN PLATELET VOLUME 10.7 fL (7.4-10.4); MONOCYTES 5.9 % (2-11); NEUTROPHILS 63.6 % (40-80); PLATELET COUNT 287 10x3/uL (130-400); RBC 4.14 10x6/uL (4.00-5.40); RDW 15.2 % (11.5-14.5); WBC 8.8 10x3/uL (4.8-10.8)
[2018-12-31 21:06] VITALS: Ht 152.4 cm; Wt 48.6 kg
[2018-12-31] MEDS ORDERED: TOPROL XL25 MG (21:09)
[2018-12-31 21:11] LABS: ALBUMIN 3.9 g/dL (3.4-5.0); ALKALINE PHOSPHATASE 79 U/L (46-116); ALT (SGPT) 14 U/L (10-68); BILIRUBIN - TOTAL 0.17 mg/dL (0.2-1.3); CALC OSMOLALITY 288 mosm/kg (275-300); CALCIUM 9.1 mg/dL (8.5-10.1); CARBON DIOXIDE 27.5 mmol/L (21.0-32.0); CHLORIDE - SERUM 106 mmol/L (98-107); CREATININE - SERUM 0.9 mg/dL (0.6-1.3); GLUCOSE 90 mg/dL (74-106); POTASSIUM - SERUM 4.3 mmol/L (3.5-5.1); PROTEIN - SERUM 8.6 g/dL (6.4-8.2); SODIUM 144 mmol/L (136-145); UREA NITROGEN 18 mg/dL (7-18); eGFR NON AFRICAN AMERICAN 70 mL/min (90-120)
[2018-12-31 21:14] LABS: TROPONIN-I < 0.017 ng/mL (0.000-0.060)
[2018-12-31 21:31] LABS: APTT 24.7 SECONDS (22.8-39.4); INR 0.9 (0.85-1.17); PROTIME 11.7 SECONDS (11.6-15.0)
[2018-12-31 21:35] LABS: CKMB 0.3 U/L (0.0-3.6); CREATINE KINASE 70 UL (21-215); MAGNESIUM - SERUM 2.1 mg/dL (1.8-2.4)
[2018-12-31 21:38] LABS: TROPONIN-I < 0.017 ng/mL (0.000-0.060)
[2018-12-31] MEDS ORDERED: NAPROSYN500 MG PO (23:19)
[2018-12-31 23:57] VITALS: BP 134/75
== END 2018-12-31 23:58 | disposition home or self-care (01) ==
LOC: D.ER 20:43
PROVIDERS: Family Medicine
DX: R07.9 Chest pain, unspecified (principal); R09.1 Pleurisy

== ENCOUNTER 2019-01-09 20:30 | Emergency (ER) | payer MEDICARE ==
[~2019-01-09] VITALS: Ht 152.4 cm; Wt 49.0 kg
[~2019-01-09 20:30] MED LIST changes: +NAPROSYN500 MG PO; +TOPROL XL25 MG
[2019-01-09 20:39] VITALS: Ht 152.4 cm; Wt 49.0 kg
[2019-01-09 20:49] LABS: BASOPHILS 0.4 % (0-2); EOSINOPHILS 1.6 % (0-7); HEMATOCRIT 34.6 % (36.0-48.0); HEMOGLOBIN 11.5 g/dL (12-16); IMMATURE GRANULOCYTES 0.2 % (0-5); LYMPHOCYTES 36.5 % (15-50); MCH 28.6 pg (26.0-34.0); MCHC 33.2 g/dL (31.0-37.0); MCV 86.1 fL (80.0-100.0); MONOCYTES 5.9 % (2-11); NEUTROPHILS 55.4 % (40-80); PLATELET COUNT 298 10x3/uL (130-400); RBC 4.02 10x6/uL (4.00-5.40); WBC 8.3 10x3/uL (4.8-10.8)
[2019-01-09 20:57] LABS: APTT 25.2 SECONDS (22.8-39.4); INR 0.98 (0.85-1.17); PROTIME 12.5 SECONDS (11.6-15.0)
[2019-01-09 21:03] LABS: ALBUMIN 3.6 g/dL (3.4-5.0); ALKALINE PHOSPHATASE 78 U/L (46-116); ALT (SGPT) 10 U/L (10-68); BILIRUBIN - TOTAL 0.17 mg/dL (0.2-1.3); CALC OSMOLALITY 286 mosm/kg (275-300); CALCIUM 8.9 mg/dL (8.5-10.1); CARBON DIOXIDE 28.4 mmol/L (21.0-32.0); CHLORIDE - SERUM 107 mmol/L (98-107); CREATININE - SERUM 0.8 mg/dL (0.6-1.3); GLUCOSE 94 mg/dL (74-106); POTASSIUM - SERUM 3.5 mmol/L (3.5-5.1); PROTEIN - SERUM 8.1 g/dL (6.4-8.2); SODIUM 143 mmol/L (136-145); UREA NITROGEN 17 mg/dL (7-18); eGFR NON AFRICAN AMERICAN 80 mL/min (90-120)
[2019-01-09 21:14] LABS: CKMB 0.5 U/L (0.0-3.6); CREATINE KINASE 64 UL (21-215); MAGNESIUM - SERUM 1.9 mg/dL (1.8-2.4)
[2019-01-09 21:16] LABS: TROPONIN-I < 0.017 ng/mL (0.000-0.060)
[2019-01-09] MEDS ORDERED: ULTRAM50 MG PO (22:30)
[2019-01-09 22:40] VITALS: BP 136/83
== END 2019-01-09 22:40 | disposition home or self-care (01) ==
LOC: D.ER 20:30
PROVIDERS: Family Medicine
DX: R07.81 Pleurodynia (principal); I10 Essential (primary) hypertension; K21.9 Gastro-esophageal reflux disease without esophagitis

== ENCOUNTER 2019-03-06 07:54 | Emergency (ER) | payer MEDICARE ==
[~2019-03-06] VITALS: Ht 152.4 cm; Wt 49.1 kg
[~2019-03-06 07:54] MED LIST changes: +ULTRAM50 MG PO
[2019-03-06 08:03] VITALS: Ht 152.4 cm; Wt 49.1 kg
[2019-03-06 08:18] LABS: APPEARANCE CLEAR (CLEAR); BILIRUBIN NEGATIVE (NEGATIVE); COLOR YELLOW (YELLOW); GLUCOSE NEGATIVE (NEGATIVE); KETONE NEGATIVE (NEGATIVE); NITRITE NEGATIVE (NEGATIVE); PROTEIN NEGATIVE (NEGATIVE); UROBILINOGEN NORMAL (NORMAL)
[2019-03-06] MEDS ORDERED: TREXALL7.5 MG (08:27)
[2019-03-06 08:46] LABS: BASOPHILS 0.1 % (0-2); EOSINOPHILS 1.4 % (0-7); HEMATOCRIT 36.8 % (36.0-48.0); HEMOGLOBIN 12.3 g/dL (12-16); IMMATURE GRANULOCYTES 0.2 % (0-5); LYMPHOCYTES 30.3 % (15-50); MCH 28.8 pg (26.0-34.0); MCHC 33.4 g/dL (31.0-37.0); MCV 86.2 fL (80.0-100.0); MEAN PLATELET VOLUME 11.1 fL (7.4-10.4); MONOCYTES 8.1 % (2-11); NEUTROPHILS 59.9 % (40-80); PLATELET COUNT 320 10x3/uL (130-400); RBC 4.27 10x6/uL (4.00-5.40); RDW 14.8 % (11.5-14.5); WBC 8.7 10x3/uL (4.8-10.8)
[2019-03-06 08:58] LABS: CALC OSMOLALITY 281 mosm/kg (275-300); CALCIUM 8.6 mg/dL (8.5-10.1); CHLORIDE - SERUM 107 mmol/L (98-107); CREATININE - SERUM 0.8 mg/dL (0.6-1.3); POTASSIUM - SERUM 3.1 mmol/L (3.5-5.1); SODIUM 143 mmol/L (136-145); UREA NITROGEN 11 mg/dL (7-18); eGFR NON AFRICAN AMERICAN 79 mL/min (90-120)
[2019-03-06 09:03] LABS: ALBUMIN 3.5 g/dL (3.4-5.0); ALKALINE PHOSPHATASE 86 U/L (46-116); ALT (SGPT) 14 U/L (10-68); BILIRUBIN - TOTAL 0.25 mg/dL (0.2-1.3); GLUCOSE 62 mg/dL (74-106); LIPASE 167 U/L (73-393); PROTEIN - SERUM 8.1 g/dL (6.4-8.2)
[2019-03-06] MEDS ORDERED: LOPERAMIDE HCL2 MG PO (10:05)
[2019-03-06] MEDS ORDERED: ZOFRAN ODT4 MG/UDTAB PO (10:05)
[2019-03-06] MEDS ORDERED: HYDROCODON-ACE1 EA10 PO (10:09)
[2019-03-06 10:19] VITALS: BP 134/80
== END 2019-03-06 10:19 | disposition home or self-care (01) ==
LOC: D.ER 07:54
PROVIDERS: Emergency Medicine
DX: A08.4 Viral intestinal infection, unspecified (principal); I10 Essential (primary) hypertension; Z72.0 Tobacco use; J45.909 Unspecified asthma, uncomplicated

== ENCOUNTER 2019-04-10 10:37 | Emergency (ER) | payer MEDICARE ==
[~2019-04-10] VITALS: Ht 152.4 cm; Wt 49.9 kg
[~2019-04-10 10:37] MED LIST changes: +LOPERAMIDE HCL2 MG PO; +TREXALL7.5 MG; +ZOFRAN ODT4 MG/UDTAB PO
[2019-04-10 10:39] VITALS: Ht 152.4 cm; Wt 49.9 kg
[2019-04-10] MEDS ORDERED: TALWIN NX1 TAB PO (12:55)
[2019-04-10] MEDS ORDERED: TAMIFLU75 MG PO (12:55)
[2019-04-10] MEDS ORDERED: MUCINEX DM ER1 EAC1 PO (12:55)
[2019-04-10 13:23] VITALS: BP 122/75
== END 2019-04-10 13:25 | disposition home or self-care (01) ==
LOC: D.ER 10:37
DX: J11.1 Influenza due to unidentified influenza virus with other respiratory manifestations (principal); I10 Essential (primary) hypertension; J45.909 Unspecified asthma, uncomplicated

== ENCOUNTER 2019-04-17 08:41 | Emergency (ER) | payer MEDICARE ==
[~2019-04-17] VITALS: Ht 152.4 cm; Wt 48.6 kg
[~2019-04-17 08:41] MED LIST changes: +MUCINEX DM ER1 EAC1 PO; +TALWIN NX1 TAB PO; +TAMIFLU75 MG PO
[2019-04-17 08:46] VITALS: Ht 152.4 cm; Wt 48.6 kg
[2019-04-17 09:56] VITALS: BP 168/99
== END 2019-04-17 09:58 | disposition home or self-care (01) ==
LOC: D.ER 08:41
DX: J11.1 Influenza due to unidentified influenza virus with other respiratory manifestations (principal); M94.0 Chondrocostal junction syndrome [Tietze]; M06.9 Rheumatoid arthritis, unspecified; I10 Essential (primary) hypertension; J45.909 Unspecified asthma, uncomplicated

== ENCOUNTER 2019-04-30 20:17 | Emergency (ER) | payer MEDICARE ==
[~2019-04-30] VITALS: Ht 152.4 cm; Wt 48.6 kg
[2019-04-30 20:43] VITALS: Ht 152.4 cm; Wt 48.6 kg
[2019-04-30] MEDS ORDERED: CYCLOBENZAPRINE10 MG PO (22:22)
[2019-04-30] MEDS ORDERED: NAPROSYN500 MG PO (22:22)
[2019-04-30 23:22] VITALS: BP 177/88
== END 2019-04-30 23:25 | disposition home or self-care (01) ==
LOC: D.ER 20:17
DX: S05.11XA Contusion of eyeball and orbital tissues, right eye, initial encounter (principal); S16.1XXA Strain of muscle, fascia and tendon at neck level, initial encounter; W01.198A Fall on same level from slipping, tripping and stumbling with subsequent striking against other object, initial encounter; I10 Essential (primary) hypertension; K21.9 Gastro-esophageal reflux disease without esophagitis

== ENCOUNTER 2019-06-14 16:44 | Emergency (ER) | payer MEDICARE, MEDICAID ==
[~2019-06-14] VITALS: Ht 152.4 cm; Wt 49.5 kg
[~2019-06-14 16:44] MED LIST changes: +CYCLOBENZAPRINE10 MG PO
[2019-06-14 17:01] VITALS: Ht 152.4 cm; Wt 49.5 kg
[2019-06-14 18:25] LABS: BASOPHILS 0.2 % (0-2); EOSINOPHILS 3.2 % (0-7); HEMATOCRIT 37.5 % (36.0-48.0); HEMOGLOBIN 12.8 g/dL (12-16); IMMATURE GRANULOCYTES 0.2 % (0-5); LYMPHOCYTES 35.2 % (15-50); MCH 29.4 pg (26.0-34.0); MCHC 34.1 g/dL (31.0-37.0); MCV 86.2 fL (80.0-100.0); MONOCYTES 10.1 % (2-11); NEUTROPHILS 51.1 % (40-80); PLATELET COUNT 321 10x3/uL (130-400); RBC 4.35 10x6/uL (4.00-5.40); RDW 15.2 % (11.5-14.5); WBC 9.5 10x3/uL (4.8-10.8)
[2019-06-14 18:38] LABS: ANION GAP 13.5 mmol/L (8-16); POTASSIUM - SERUM 3.5 mmol/L (3.5-5.1)
[2019-06-14 18:41] LABS: ALBUMIN 3.6 g/dL (3.4-5.0); BILIRUBIN - TOTAL 0.32 mg/dL (0.2-1.3); PROTEIN - SERUM 8.4 g/dL (6.4-8.2)
[2019-06-14] MEDS ORDERED: PHENERGAN25 M1 PO (19:13)
[2019-06-14 19:46] VITALS: BP 169/100
== END 2019-06-14 20:05 | disposition home or self-care (01) ==
LOC: D.ER 16:44
PROVIDERS: Family Medicine
DX: G43.909 Migraine, unspecified, not intractable, without status migrainosus (principal); R11.0 Nausea; I00 Rheumatic fever without heart involvement; Z72.0 Tobacco use

== ENCOUNTER 2019-07-12 00:18 | Emergency (ER) | payer MEDICARE, MEDICAID ==
[~2019-07-12] VITALS: Ht 152.4 cm; Wt 50.0 kg
[~2019-07-12 00:18] MED LIST changes: +PHENERGAN25 M1 PO
[2019-07-12 00:25] VITALS: Ht 152.4 cm; Wt 50.0 kg
[2019-07-12] MEDS ORDERED: TOPROL XL25 MG PO (00:28)
[2019-07-12] MEDS ORDERED: LISINOPRIL2.5 MG PO (00:28)
[2019-07-12 01:01] LABS: BASOPHILS 0.2 % (0-2); EOSINOPHILS 1.9 % (0-7); HEMATOCRIT 38.7 % (36.0-48.0); HEMOGLOBIN 12.8 g/dL (12-16); IMMATURE GRANULOCYTES 0.2 % (0-5); MCH 28.5 pg (26.0-34.0); MCHC 33.1 g/dL (31.0-37.0); MCV 86.2 fL (80.0-100.0); MEAN PLATELET VOLUME 10.6 fL (7.4-10.4); MONOCYTES 6.6 % (2-11); NEUTROPHILS 62.1 % (40-80); PLATELET COUNT 287 10x3/uL (130-400); RBC 4.49 10x6/uL (4.00-5.40); RDW 14.9 % (11.5-14.5)
[2019-07-12 01:16] LABS: CALC OSMOLALITY 276 mosm/kg (275-300); CALCIUM 9.5 mg/dL (8.5-10.1); CARBON DIOXIDE 26.5 mmol/L (21.0-32.0); CHLORIDE - SERUM 103 mmol/L (98-107); CREATININE - SERUM 0.8 mg/dL (0.6-1.3); GLUCOSE 108 mg/dL (74-106); POTASSIUM - SERUM 4.3 mmol/L (3.5-5.1); SODIUM 138 mmol/L (136-145); UREA NITROGEN 13 mg/dL (7-18); eGFR NON AFRICAN AMERICAN 79 mL/min (90-120)
[2019-07-12 01:26] LABS: APTT 25.5 SECONDS (22.8-39.4); INR 0.9 (0.85-1.17); PROTIME 12.2 SECONDS (11.6-15.0)
[2019-07-12 01:27] LABS: BILIRUBIN NEGATIVE (NEGATIVE); GLUCOSE NEGATIVE (NEGATIVE); KETONE NEGATIVE (NEGATIVE); NITRITE NEGATIVE (NEGATIVE); UROBILINOGEN NORMAL (NORMAL)
[2019-07-12 01:48] LABS: ALBUMIN 4.5 g/dL (3.4-5.0); ALKALINE PHOSPHATASE 74 U/L (30-120); ALT (SGPT) 24 U/L (10-68); BILIRUBIN - TOTAL 0.25 mg/dL (0.2-1.3); CKMB 0.4 U/L (0.0-3.6); CREATINE KINASE 130 UL (21-215); MAGNESIUM - SERUM 2.3 mg/dL (1.8-2.4); PROTEIN - SERUM 8.9 g/dL (6.4-8.2); TROPONIN-I < 0.017 ng/mL (0.000-0.060)
[2019-07-12 03:00] VITALS: BP 135/85
== END 2019-07-12 03:00 | disposition home or self-care (01) ==
LOC: D.ER 00:18
PROVIDERS: Family Medicine
DX: R07.81 Pleurodynia (principal); R07.9 Chest pain, unspecified; I10 Essential (primary) hypertension

== ENCOUNTER 2019-10-16 19:44 | Emergency (ER) | payer MEDICARE, MEDICAID ==
[~2019-10-16] VITALS: Ht 152.4 cm; Wt 48.2 kg
[~2019-10-16 19:44] MED LIST changes: +LISINOPRIL2.5 MG PO; +TOPROL XL25 MG PO
[2019-10-16 19:48] VITALS: Ht 152.4 cm; Wt 48.2 kg
[2019-10-16 20:13] LABS: BASOPHILS 0.3 % (0-2); EOSINOPHILS 4.6 % (0-7); HEMATOCRIT 38.8 % (36.0-48.0); LYMPHOCYTES 48.2 % (15-50); MCH 29.5 pg (26.0-34.0); MCHC 33.5 g/dL (31.0-37.0); MCV 88.2 fL (80.0-100.0); MEAN PLATELET VOLUME 11.2 fL (7.4-10.4); MONOCYTES 13.8 % (2-11); NEUTROPHILS 33.1 % (40-80); RDW 13.5 % (11.5-14.5); WBC 6.1 10x3/uL (4.8-10.8)
[2019-10-16 20:14] LABS: PLATELET COUNT 211 10x3/uL (130-400)
[2019-10-16 20:21] LABS: INR 0.99 (0.85-1.17)
[2019-10-16 20:25] LABS: CALC OSMOLALITY 274 mosm/kg (275-300); CALCIUM 8.9 mg/dL (8.5-10.1); CARBON DIOXIDE 24.4 mmol/L (21.0-32.0); CHLORIDE - SERUM 104 mmol/L (98-107); GLUCOSE 115 mg/dL (74-106); POTASSIUM - SERUM 3.5 mmol/L (3.5-5.1); SODIUM 137 mmol/L (136-145); UREA NITROGEN 12 mg/dL (7-18); eGFR NON AFRICAN AMERICAN 61 mL/min (90-120)
[2019-10-16 20:39] LABS: ALBUMIN 3.9 g/dL (3.4-5.0); ALKALINE PHOSPHATASE 61 U/L (30-120); ALT (SGPT) 21 U/L (10-68); BILIRUBIN - TOTAL 0.47 mg/dL (0.2-1.3); CREATINE KINASE 127 UL (21-215); MAGNESIUM - SERUM 2.2 mg/dL (1.8-2.4); PROTEIN - SERUM 7.9 g/dL (6.4-8.2)
[2019-10-16 20:44] LABS: TROPONIN-I < 0.017 ng/mL (0.000-0.060)
[2019-10-16] MEDS ORDERED: METHOCARBAMOL500 MG PO (23:19)
[2019-10-16 23:51] VITALS: BP 147/83
== END 2019-10-16 23:52 | disposition home or self-care (01) ==
LOC: D.ER 19:44
PROVIDERS: Family Medicine
DX: R07.89 Other chest pain (principal); R79.89 Other specified abnormal findings of blood chemistry

== ENCOUNTER 2019-10-25 15:55 | Emergency (ER) | payer MEDICARE, MEDICAID ==
[~2019-10-25] VITALS: Ht 152.4 cm; Wt 50.0 kg
[~2019-10-25 15:55] MED LIST changes: +METHOCARBAMOL500 MG PO
[2019-10-25 16:02] VITALS: Ht 152.4 cm; Wt 50.0 kg
[2019-10-25 16:55] LABS: APTT 32.8 SECONDS (22.8-39.4); INR 0.95 (0.85-1.17); PROTIME 12.6 SECONDS (11.6-15.0)
[2019-10-25 16:59] LABS: HEMATOCRIT 37.4 % (36.0-48.0); HEMOGLOBIN 12.8 g/dL (12-16); MCHC 34.2 g/dL (31.0-37.0); MCV 87.6 fL (80.0-100.0); MEAN PLATELET VOLUME 12.2 fL (7.4-10.4); PLATELET COUNT 206 10x3/uL (130-400); RBC 4.27 10x6/uL (4.00-5.40); RDW 13.8 % (11.5-14.5); WBC 6.5 10x3/uL (4.8-10.8)
[2019-10-25 17:00] LABS: CALC OSMOLALITY 275 mosm/kg (275-300); CALCIUM 8.7 mg/dL (8.5-10.1); CARBON DIOXIDE 25.3 mmol/L (21.0-32.0); CHLORIDE - SERUM 104 mmol/L (98-107); GLUCOSE 81 mg/dL (74-106); POTASSIUM - SERUM 3.3 mmol/L (3.5-5.1); SODIUM 139 mmol/L (136-145); UREA NITROGEN 9 mg/dL (7-18); eGFR NON AFRICAN AMERICAN 61 mL/min (90-120)
[2019-10-25 17:15] LABS: ALBUMIN 3.9 g/dL (3.4-5.0); ALKALINE PHOSPHATASE 58 U/L (30-120); ALT (SGPT) 17 U/L (10-68); BILIRUBIN - TOTAL 0.29 mg/dL (0.2-1.3); CREATINE KINASE 115 UL (21-215); MAGNESIUM - SERUM 2.4 mg/dL (1.8-2.4); PROTEIN - SERUM 7.9 g/dL (6.4-8.2)
[2019-10-25 17:16] LABS: TROPONIN-I < 0.017 ng/mL (0.000-0.060)
[2019-10-25 17:34] VITALS: BP 151/86
[2019-10-25 17:35] LABS: EOSINOPHILS 3 % (0-7); LYMPHOCYTES 61 % (15-50); MONOCYTES 2 % (2-11); NEUTROPHILS 34 % (40-80); PLATELET ESTIMATE NORMAL
== END 2019-10-25 17:52 | disposition home or self-care (01) ==
LOC: D.ER 15:55
PROVIDERS: Family Medicine
DX: R07.9 Chest pain, unspecified (principal); E87.6 Hypokalemia; M06.9 Rheumatoid arthritis, unspecified

== ENCOUNTER 2020-01-23 09:15 | Outpatient (CLI) | payer MEDICARE, MEDICAID ==
[2019-10-25 16:02] VITALS: BMI 21.5
== END 2020-01-23 10:15 | disposition home or self-care (01) ==
LOC: D.MAMMO 09:15
PROVIDERS: ATTEND Family Medicine
DX: Z12.31 Encounter for screening mammogram for malignant neoplasm of breast (principal)

== ENCOUNTER 2020-07-17 08:07 | Emergency (ER) | payer MEDICARE, MEDICAID ==
[~2020-07-17] VITALS: Ht 152.4 cm; Wt 47.7 kg
[~2020-07-17 08:07] MED LIST changes: +ACETAMINOPHEN500 M1 PO; +MEDROL DOSE PACK4 MG PO
[2020-07-17 08:15] VITALS: BP 150/96; Ht 152.4 cm; Wt 47.7 kg
[2020-07-17 08:35] LABS: CALC OSMOLALITY 277 mosm/kg (275-300); CALCIUM 9.1 mg/dL (8.5-10.1); CARBON DIOXIDE 21.9 mmol/L (21.0-32.0); CHLORIDE - SERUM 103 mmol/L (98-107); GLUCOSE 94 mg/dL (74-106); POTASSIUM - SERUM 3.8 mmol/L (3.5-5.1); SODIUM 140 mmol/L (136-145); UREA NITROGEN 10 mg/dL (7-18); eGFR NON AFRICAN AMERICAN 61 mL/min (90-120)
[2020-07-17 08:47] LABS: BASOPHILS 0.3 % (0-2); EOSINOPHILS 1.7 % (0-7); HEMATOCRIT 37.7 % (36.0-48.0); HEMOGLOBIN 13.2 g/dL (12-16); IMMATURE GRANULOCYTES 0.2 % (0-5); LYMPHOCYTE ABS# 3.68 10x3/uL (1.18-3.74); LYMPHOCYTES 41.9 % (15-50); MCH 30.6 pg (26.0-34.0); MCV 87.3 fL (80.0-100.0); MONOCYTES 6.2 % (2-11); NEUTROPHIL ABS# 4.36 10x3/uL (1.56-6.13); NEUTROPHILS 49.7 % (40-80); RBC 4.32 10x6/uL (4.00-5.40); RDW 13.6 % (11.5-14.5); WBC 8.8 10x3/uL (4.8-10.8)
[2020-07-17 08:50] LABS: PLATELET COUNT 235 10x3/uL (130-400)
[2020-07-17 08:51] LABS: APTT 27.3 SECONDS (22.8-39.4); INR 0.96 (0.85-1.17); PROTIME 11.8 SECONDS (11.6-15.0)
[2020-07-17 08:52] LABS: ALBUMIN 4.5 g/dL (3.4-5.0); ALKALINE PHOSPHATASE 77 U/L (30-120); ALT (SGPT) 95 U/L (10-68); CKMB 1.2 U/L (0.0-3.6); CREATINE KINASE 169 UL (21-215); MAGNESIUM - SERUM 2.3 mg/dL (1.8-2.4); PROTEIN - SERUM 8.2 g/dL (6.4-8.2); TROPONIN-I 0.024 ng/mL (0.000-0.060)
[2020-07-17 08:53] LABS: C-REACTIVE PROTEIN < 0.2 mg/dL (0.0-0.9)
[2020-07-17 09:10] LABS: D-DIMER-QUANTITATIVE 17.88 ug/mLFEU (0.20-0.54)
[2020-07-17] MEDS ORDERED: STERAPRED DS 1010 MG PO (10:44)
== END 2020-07-17 10:58 | disposition home or self-care (01) ==
LOC: D.ER 08:07
PROVIDERS: Family Medicine
DX: R07.9 Chest pain, unspecified (principal); M06.9 Rheumatoid arthritis, unspecified

== ENCOUNTER 2020-07-24 02:24 | Observation (INO) | payer MEDICARE, MEDICAID ==
[~2020-07-24] VITALS: Ht 152.4 cm; Wt 50.0 kg
[~2020-07-24 02:24] MED LIST changes: +STERAPRED DS 1010 MG PO
[2020-07-24 02:47] VITALS: BP 172/106
[2020-07-24 02:55] LABS: BASOPHILS 0.4 % (0-2); EOSINOPHILS 1.8 % (0-7); HEMATOCRIT 43.2 % (36.0-48.0); HEMOGLOBIN 14.9 g/dL (12-16); IMMATURE GRANULOCYTES 0.4 % (0-5); LYMPHOCYTE ABS# 3.79 10x3/uL (1.18-3.74); LYMPHOCYTES 45.1 % (15-50); MCH 30.8 pg (26.0-34.0); MCHC 34.5 g/dL (31.0-37.0); MCV 89.3 fL (80.0-100.0); MEAN PLATELET VOLUME 12.1 fL (7.4-10.4); MONOCYTES 9.9 % (2-11); NEUTROPHIL ABS# 3.58 10x3/uL (1.56-6.13); NEUTROPHILS 42.4 % (40-80); PLATELET COUNT 247 10x3/uL (130-400); RBC 4.84 10x6/uL (4.00-5.40); RDW 13.8 % (11.5-14.5); WBC 8.4 10x3/uL (4.8-10.8)
[2020-07-24 03:02] LABS: CALC OSMOLALITY 276 mosm/kg (275-300); CALCIUM 9.5 mg/dL (8.5-10.1); CARBON DIOXIDE 26.7 mmol/L (21.0-32.0); CHLORIDE - SERUM 101 mmol/L (98-107); CREATININE - SERUM 0.9 mg/dL (0.6-1.3); GLUCOSE 105 mg/dL (74-106); POTASSIUM - SERUM 3.7 mmol/L (3.5-5.1); SODIUM 139 mmol/L (136-145); UREA NITROGEN 10 mg/dL (7-18); eGFR NON AFRICAN AMERICAN 69 mL/min (90-120)
[2020-07-24 03:05] LABS: APTT 35.8 SECONDS (22.8-39.4); INR 0.99 (0.85-1.17); PROTIME 12.1 SECONDS (11.6-15.0)
[2020-07-24 03:17] LABS: ALBUMIN 4.6 g/dL (3.4-5.0); ALKALINE PHOSPHATASE 76 U/L (30-120); ALT (SGPT) 95 U/L (10-68); BILIRUBIN - TOTAL 0.38 mg/dL (0.2-1.3); CREATINE KINASE 101 UL (21-215); LIPASE 255 U/L (73-393); MAGNESIUM - SERUM 2.2 mg/dL (1.8-2.4); PRO BNP 1230 pg/mL (0-125); PROTEIN - SERUM 9.3 g/dL (6.4-8.2); THYROID STIMULATING HORMONE 2.02 uIU/mL (0.36-3.74)
[2020-07-24 03:18] LABS: TROPONIN-I < 0.017 ng/mL (0.000-0.060)
[2020-07-24 03:28] LABS: BILIRUBIN NEGATIVE (NEGATIVE); KETONE NEGATIVE (NEGATIVE); NITRITE NEGATIVE (NEGATIVE); UROBILINOGEN NORMAL mg/dL (< 2)
[2020-07-24 03:37] LABS: UDS - AMPHET NEGATIVE QUAL (NEGATIVE); UDS - BARB NEGATIVE QUAL (NEGATIVE); UDS - BENZO NEGATIVE QUAL (NEGATIVE); UDS - COCAINE POSITIVE QUAL (NEGATIVE); UDS - OPIATE NEGATIVE QUAL (NEGATIVE); UDS - PCP NEGATIVE QUAL (NEGATIVE); UDS - THC NEGATIVE QUAL (NEGATIVE)
[2020-07-24] MEDS ORDERED: HYDROCODON-ACE1 EAC7 PO (06:10)
[2020-07-24 06:22] VITALS: BP 152/99; BMI 21.5
--- NOTE | 2020-07-24 06:39 | NUR ---
RECIEVED REPORT FROM ER. ARRIVED TO ROOM ON STRETCHER. ASSESSMENT COMPLETED.
--- NOTE | 2020-07-24 08:03 | NUR ---
PT RECEIVED ASLEEP IN BED. NPO FOR CARDIAC CONSULT. BOARD UPDATED WITH PLAN.
[2020-07-24 08:23] VITALS: Ht 152.4 cm; Wt 50.0 kg
[2020-07-24 08:57] VITALS: BP 136/81
--- NOTE | 2020-07-24 09:42 | NUR ---
PT TRIED TO SIT UP TO EAT AND STATES CAUSED CHEST PAIN. BP AT 136/71. USED BED TO ELEVATE FOR MEAL. FEELING BETTER NOW, STATES LIKE A BUBBLE IN HER CHEST. GI??
[2020-07-24 10:03] LABS: CHOL - HDL RATIO 2.9 ratio (2.3-4.1); LDL-HDL RATIO 1.7 ratio (1.5-3.5)
[2020-07-24 12:38] VITALS: BP 98/58
[2020-07-24 15:57] VITALS: BP 100/60
--- NOTE | 2020-07-24 19:46 | NUR ---
RECIEVED UP IN BED WITH EYES OPEN . ALERT AND ORIENTED X4. UP AD ABILIO. WANTS SLEEP MEDICATION. WILL CONTACT UI UX DEVELOPER FOR ANY ORDDER. DENIES ANY OTHER NEEDS.
[2020-07-24 20:00] VITALS: BP 92/64
[2020-07-25 05:03] VITALS: BP 117/73
[2020-07-25 06:40] LABS: BASOPHILS 0.3 % (0-2); EOSINOPHILS 2.4 % (0-7); IMMATURE GRANULOCYTES 0.1 % (0-5); LYMPHOCYTE ABS# 3.39 10x3/uL (1.18-3.74); LYMPHOCYTES 42.6 % (15-50); MCHC 33.5 g/dL (31.0-37.0); MCV 89.5 fL (80.0-100.0); MEAN PLATELET VOLUME 12.6 fL (7.4-10.4); MONOCYTES 12.5 % (2-11); NEUTROPHIL ABS# 3.35 10x3/uL (1.56-6.13); NEUTROPHILS 42.1 % (40-80); PLATELET COUNT 206 10x3/uL (130-400); RDW 14.1 % (11.5-14.5)
[2020-07-25 06:46] LABS: ANION GAP 12.1 mmol/L (8-16); BILIRUBIN - TOTAL 0.34 mg/dL (0.2-1.3); CALCIUM 9.2 mg/dL (8.5-10.1); CARBON DIOXIDE 24.9 mmol/L (21.0-32.0); CREATININE - SERUM 0.9 mg/dL (0.6-1.3); MAGNESIUM - SERUM 2.5 mg/dL (1.8-2.4); PHOSPHOROUS 5.5 mg/dL (2.5-4.9)
[2020-07-25 06:47] LABS: ALBUMIN 3.1 g/dL (3.4-5.0); PROTEIN - SERUM 6.6 g/dL (6.4-8.2)
[2020-07-25 06:53] LABS: HEMOGLOBIN 11.4 g/dL (12-16)
[2020-07-25 08:04] VITALS: BP 132/80
--- NOTE | 2020-07-25 08:35 | NUR ---
AM MEDS GIVEN WITH PRN PAIN MEDICATION D/T C/O CHEST PAIN. PT AWAKE AND ALERT, SITTING UP IN BED WATCHING THE NEWS. RR EVEN NON LABORED, PT DENIES ANY FURTHER NEEDS. CLWR.
[2020-07-25 11:47] VITALS: BP 96/62
[2020-07-25] MEDS ORDERED: TOPROL XL25 MG PO (12:30)
[2020-07-25] MEDS ORDERED: NICODERM CQ1 EAC3 TRANSDERM (12:30)
[2020-07-25] MEDS ORDERED: PROTONIX40 MG PO (12:31)
--- NOTE | 2020-07-25 12:54 | NUR ---
PT SPOKE WITH MARIA GUADALUPE MAYFIELD REGARDING D/C PLAN. PT AWARE AND DENIES ANY QUESTIONS. NO NEEDS VOICED. CLWR.
--- NOTE | 2020-07-25 13:30 | NUR ---
D/C INSTRUCTIONS GIVEN TO PT AT THIS TIME. PT STATES UNDERSTANDING AND DENIES ANY QUESTIONS. PT HAS CLOTHING ON, BELONGINGS GATHERED, PT PHONED FAMILY MEMBER FOR TRANSPORTATION HOME. IV D/C CATHETER INTACT, DRESSING APPLIED. PT STATES SHE WILL USE CALL LIGHT WHEN TRANSPORTATION ARRIVES. CLWR.
--- NOTE | 2020-07-25 13:45 | NUR ---
PT WHEELED TO PRIVATE VEHICLE WITH EDGE BRUSHER AT THIS TIME. RR EVEN NON LABORED, ALL BELONGINGS WITH PT. NO DISTRESS NOTED ON DEPARTURE.
== END 2020-07-25 13:45 | disposition home or self-care (01) ==
LOC: D.ER 02:24 → D.M2 04:46 → OBSVTIME 04:47 → D.M2 07-25 13:45
PROVIDERS: Family Medicine; ADMIT Emergency Medicine; ATTEND Emergency Medicine
DX: I16.0 Hypertensive urgency (principal); R07.9 Chest pain, unspecified; I10 Essential (primary) hypertension; F17.203 Nicotine dependence unspecified, with withdrawal; M06.9 Rheumatoid arthritis, unspecified

== ENCOUNTER 2020-08-16 12:12 | Emergency (ER) | payer MEDICARE, MEDICAID ==
[~2020-08-16] VITALS: Ht 152.4 cm; Wt 48.2 kg
[~2020-08-16 12:12] MED LIST changes: +HYDROCODON-ACE1 EAC7 PO; +NICODERM CQ1 EAC3 TRANSDERM
[2020-08-16 12:23] VITALS: Ht 152.4 cm; Wt 48.2 kg
[2020-08-16] MEDS ORDERED: HYDROCODON-ACE1 EAC7 PO (14:19)
[2020-08-16 15:20] VITALS: BP 118/72
== END 2020-08-16 15:25 | disposition home or self-care (01) ==
LOC: D.ER 12:12
DX: I95.9 Hypotension, unspecified (principal); I10 Essential (primary) hypertension; F12.90 Cannabis use, unspecified, uncomplicated; Z72.0 Tobacco use; S00.01XA Abrasion of scalp, initial encounter; W19.XXXA Unspecified fall, initial encounter; Y93.9 Activity, unspecified; Y92.9 Unspecified place or not applicable

== ENCOUNTER 2020-08-24 18:03 | Emergency (ER) | payer MEDICARE, MEDICAID ==
[~2020-08-24] VITALS: Ht 152.4 cm; Wt 48.6 kg
[2020-08-24 18:10] VITALS: Ht 152.4 cm; Wt 48.6 kg
[2020-08-24 18:41] LABS: BASOPHILS 0.5 % (0-2); EOSINOPHILS 3.9 % (0-7); HEMATOCRIT 35.2 % (36.0-48.0); HEMOGLOBIN 12.1 g/dL (12-16); IMMATURE GRANULOCYTES 0.2 % (0-5); LYMPHOCYTE ABS# 3.03 10x3/uL (1.18-3.74); LYMPHOCYTES 47.2 % (15-50); MCHC 34.4 g/dL (31.0-37.0); MCV 90.3 fL (80.0-100.0); MEAN PLATELET VOLUME 12.3 fL (7.4-10.4); MONOCYTES 11.2 % (2-11); NEUTROPHIL ABS# 2.38 10x3/uL (1.56-6.13); PLATELET COUNT 217 10x3/uL (130-400); RDW 13.8 % (11.5-14.5); WBC 6.4 10x3/uL (4.8-10.8)
[2020-08-24 18:51] LABS: CALC OSMOLALITY 284 mosm/kg (275-300); CALCIUM 9.1 mg/dL (8.5-10.1); CARBON DIOXIDE 27.5 mmol/L (21.0-32.0); CHLORIDE - SERUM 106 mmol/L (98-107); CREATININE - SERUM 0.9 mg/dL (0.6-1.3); GLUCOSE 116 mg/dL (74-106); POTASSIUM - SERUM 4.1 mmol/L (3.5-5.1); SODIUM 142 mmol/L (136-145); UREA NITROGEN 14 mg/dL (7-18); eGFR NON AFRICAN AMERICAN 69 mL/min (90-120)
[2020-08-24 19:06] LABS: ALBUMIN 3.4 g/dL (3.4-5.0); ALKALINE PHOSPHATASE 72 U/L (30-120); ALT (SGPT) 162 U/L (10-68); BILIRUBIN - TOTAL 0.26 mg/dL (0.2-1.3); CKMB 0.4 U/L (0.0-3.6); PROTEIN - SERUM 7.4 g/dL (6.4-8.2)
[2020-08-24 19:13] LABS: TROPONIN-I < 0.017 ng/mL (0.000-0.060)
[2020-08-24] MEDS ORDERED: HYDROCODONE-AC1 EAC2 PO (21:31)
[2020-08-24 22:15] VITALS: BP 148/89
== END 2020-08-24 22:15 | disposition home or self-care (01) ==
LOC: D.ER 18:03
PROVIDERS: Family Medicine
DX: S20.212A Contusion of left front wall of thorax, initial encounter (principal); W19.XXXA Unspecified fall, initial encounter; Y93.9 Activity, unspecified; Y92.9 Unspecified place or not applicable; M06.9 Rheumatoid arthritis, unspecified; I10 Essential (primary) hypertension; J45.909 Unspecified asthma, uncomplicated; Z72.0 Tobacco use; R07.89 Other chest pain

== ENCOUNTER → 2020-09-25 | Emergency (ER) | payer MEDICARE, MEDICAID ==
[~2020-09-25] VITALS: Ht 152.4 cm; Wt 52.3 kg
[~2020-09-25] MED LIST changes: +HYDROCODONE-AC1 EAC2 PO
[2020-09-25 10:58] VITALS: Ht 152.4 cm; Wt 52.3 kg
[2020-09-25 11:33] LABS: BASOPHILS 0.8 % (0-2); EOSINOPHILS 3.9 % (0-7); HEMATOCRIT 38.1 % (36.0-48.0); HEMOGLOBIN 12.7 g/dL (12-16); LYMPHOCYTES 38.3 % (15-50); MCH 30.8 pg (26.0-34.0); MCHC 33.4 g/dL (31.0-37.0); MCV 92.2 fL (80.0-100.0); MEAN PLATELET VOLUME 10.4 fL (7.4-10.4); MONOCYTES 16.9 % (2-11); NEUTROPHILS 40.1 % (40-80); PLATELET COUNT 182 10x3/uL (130-400); RBC 4.14 10x6/uL (4.00-5.40); RDW 13.7 % (11.5-14.5); WBC 5.5 10x3/uL (4.8-10.8)
[2020-09-25 11:44] LABS: APTT 39.9 SECONDS (22.8-39.4); PROTIME 12.2 SECONDS (11.6-15.0)
[2020-09-25 11:45] LABS: CALC OSMOLALITY 277 mosm/kg (275-300); CALCIUM 8.9 mg/dL (8.5-10.1); CARBON DIOXIDE 27.9 mmol/L (21.0-32.0); CHLORIDE - SERUM 106 mmol/L (98-107); CREATININE - SERUM 0.8 mg/dL (0.6-1.3); POTASSIUM - SERUM 3.5 mmol/L (3.5-5.1); SODIUM 141 mmol/L (136-145); UREA NITROGEN 10 mg/dL (7-18); eGFR NON AFRICAN AMERICAN 79 mL/min (90-120)
[2020-09-25 11:47] LABS: GLUCOSE 59 mg/dL (74-106)
[2020-09-25 12:02] LABS: ALBUMIN 3.7 g/dL (3.4-5.0); ALKALINE PHOSPHATASE 77 U/L (30-120); ALT (SGPT) 98 U/L (10-68); BILIRUBIN - TOTAL 0.37 mg/dL (0.2-1.3); CKMB 0.4 U/L (0.0-3.6); CREATINE KINASE 68 UL (21-215); MAGNESIUM - SERUM 2.3 mg/dL (1.8-2.4); PROTEIN - SERUM 7.9 g/dL (6.4-8.2)
[2020-09-25 12:03] LABS: TROPONIN-I < 0.017 ng/mL (0.000-0.060)
[2020-09-25 14:54] VITALS: BP 146/80
== END | disposition home or self-care (01) ==
LOC: D.ER 10:51
PROVIDERS: Emergency Medicine
DX: R51.9 Headache, unspecified (principal); R07.9 Chest pain, unspecified

== ENCOUNTER 2020-10-03 11:47 | Observation (INO) | payer MEDICARE, MEDICAID ==
[~2020-10-03] VITALS: Ht 152.4 cm; Wt 49.5 kg
[2020-10-03 13:28] LABS: BASOPHILS 1.2 % (0-2); EOSINOPHILS 1.8 % (0-7); HEMATOCRIT 41.9 % (36.0-48.0); HEMOGLOBIN 14.1 g/dL (12-16); LYMPHOCYTES 37.7 % (15-50); MCH 30.8 pg (26.0-34.0); MCHC 33.7 g/dL (31.0-37.0); MCV 91.4 fL (80.0-100.0); MEAN PLATELET VOLUME 10.4 fL (7.4-10.4); MONOCYTES 6.5 % (2-11); NEUTROPHILS 52.8 % (40-80); RBC 4.58 10x6/uL (4.00-5.40); RDW 13.2 % (11.5-14.5); WBC 8.8 10x3/uL (4.8-10.8)
[2020-10-03 13:30] LABS: PLATELET COUNT 261 10x3/uL (130-400)
--- NOTE | 2020-10-03 13:40 | NUR ---
ASSISTED PATIENT TO BATHROOM WITH POTTY HAT TO COLLECT URINE. PATIENT MISSED THE POTTY HAT WHEN URINATING. WILL TRY AGAIN.
[2020-10-03 13:47] LABS: CALC OSMOLALITY 260 mosm/kg (275-300); CARBON DIOXIDE 26.2 mmol/L (21.0-32.0); CHLORIDE - SERUM 92 mmol/L (98-107); CREATININE - SERUM 0.8 mg/dL (0.6-1.3); GLUCOSE 77 mg/dL (74-106); POTASSIUM - SERUM 3.7 mmol/L (3.5-5.1); SODIUM 131 mmol/L (136-145); UREA NITROGEN 10 mg/dL (7-18); eGFR NON AFRICAN AMERICAN 79 mL/min (90-120)
--- NOTE | 2020-10-03 13:53 | NUR ---
PATIENT MOVED FROM FAMILY ROOM TO E4.
[2020-10-03 14:07] LABS: ALBUMIN 4.1 g/dL (3.4-5.0); ALKALINE PHOSPHATASE 89 U/L (30-120); ALT (SGPT) 70 U/L (10-68); BILIRUBIN - TOTAL 0.52 mg/dL (0.2-1.3); CKMB 0.8 U/L (0.0-3.6); CREATINE KINASE 95 UL (21-215); PROTEIN - SERUM 8.8 g/dL (6.4-8.2)
[2020-10-03 14:08] LABS: TROPONIN-I < 0.017 ng/mL (0.000-0.060)
[2020-10-03 14:29] LABS: APTT 31.1 SECONDS (22.8-39.4); INR 1.08 (0.85-1.17); PROTIME 12.9 SECONDS (11.6-15.0)
--- NOTE | 2020-10-03 19:13 | NUR ---
PT REPORT GIVEN TO CHASITY JENKINS AT THIS TIME.
[2020-10-03 20:05] VITALS: BP 136/77
[2020-10-03 20:11] LABS: CKMB 0.9 U/L (0.0-3.6); CREATINE KINASE 78 UL (21-215)
[2020-10-03 20:17] LABS: TROPONIN-I < 0.017 ng/mL (0.000-0.060)
[2020-10-03 21:11] LABS: UDS - AMPHET NEGATIVE QUAL (NEGATIVE); UDS - BARB NEGATIVE QUAL (NEGATIVE); UDS - BENZO NEGATIVE QUAL (NEGATIVE); UDS - COCAINE POSITIVE QUAL (NEGATIVE); UDS - OPIATE POSITIVE QUAL (NEGATIVE); UDS - PCP NEGATIVE QUAL (NEGATIVE); UDS - THC NEGATIVE QUAL (NEGATIVE)
[2020-10-03 22:39] VITALS: BP 110/72
[2020-10-04] VITALS (7 sets, daily range): BP systolic 92–121; BP diastolic 59–75; Ht 152.4 cm; Wt 49.5 kg
--- NOTE | 2020-10-04 00:10 | NUR ---
PATIENT RESTING QUIETLY AT THIS TIME.
--- NOTE | 2020-10-04 04:00 | NUR ---
ASSUMED PT CARE AT THIS TIME. PT DENIES NEEDS. CALL LIGHT IN REACH.
[2020-10-04 04:52] LABS: BASOPHILS 0.6 % (0-2); EOSINOPHILS 3.7 % (0-7); HEMATOCRIT 40.8 % (36.0-48.0); HEMOGLOBIN 13.6 g/dL (12-16); LYMPHOCYTES 43.9 % (15-50); MCH 30.6 pg (26.0-34.0); MCHC 33.3 g/dL (31.0-37.0); MCV 91.8 fL (80.0-100.0); MEAN PLATELET VOLUME 10.3 fL (7.4-10.4); MONOCYTES 10.5 % (2-11); NEUTROPHILS 41.3 % (40-80); PLATELET COUNT 217 10x3/uL (130-400); RBC 4.44 10x6/uL (4.00-5.40); RDW 13.2 % (11.5-14.5); WBC 7.2 10x3/uL (4.8-10.8)
[2020-10-04 05:12] LABS: ALBUMIN 3.8 g/dL (3.4-5.0); ALKALINE PHOSPHATASE 88 U/L (30-120); ALT (SGPT) 58 U/L (10-68); BILIRUBIN - TOTAL 0.64 mg/dL (0.2-1.3); CALCIUM 8.7 mg/dL (8.5-10.1); CARBON DIOXIDE 23.2 mmol/L (21.0-32.0); CHLORIDE - SERUM 96 mmol/L (98-107); CKMB 0.6 U/L (0.0-3.6); CREATINE KINASE 66 UL (21-215); GLUCOSE 80 mg/dL (74-106); MAGNESIUM - SERUM 2.3 mg/dL (1.8-2.4); PHOSPHOROUS 4.8 mg/dL (2.5-4.9); POTASSIUM - SERUM 3.4 mmol/L (3.5-5.1); SODIUM 130 mmol/L (136-145); TROPONIN-I < 0.017 ng/mL (0.000-0.060); eGFR NON AFRICAN AMERICAN 55 mL/min (90-120)
[2020-10-04 05:14] LABS: CALC OSMOLALITY 260 mosm/kg (275-300); CREATININE - SERUM 1.1 mg/dL (0.6-1.3); UREA NITROGEN 16 mg/dL (7-18)
--- NOTE | 2020-10-04 12:00 | NUR ---
RELIEVING PRIMARY RN FOR LUNCH BREAK AT THIS TIME
--- NOTE | 2020-10-04 16:59 | NUR ---
PT LEFT PRIOR TO RECEIVING D/C PAPERWORK. PT IN NAD, VSS, A&OX4 UPON DEPARTURE. PIV DISCONTINUED UPON DISCHARGE.
== END 2020-10-04 17:20 | disposition home or self-care (01) ==
LOC: D.ER 11:47 → D.EDHOLD 13:58 → OBSVTIME 13:58 → D.EDHOLD 10-04 05:00
PROVIDERS: Family Medicine; ADMIT Emergency Medicine; ATTEND Emergency Medicine
DX: R07.89 Other chest pain (principal); I10 Essential (primary) hypertension; M06.9 Rheumatoid arthritis, unspecified; F19.10 Other psychoactive substance abuse, uncomplicated; E87.1 Hypo-osmolality and hyponatremia; J45.909 Unspecified asthma, uncomplicated